=== PATIENT | female | born 1980 | race Caucasian/White ===

== ENCOUNTER 2019-04-24 15:04 | Inpatient (IN) | payer OTHER, SELFPAY ==
--- NOTE | ~2019-04-24 | XR_ITS ---
EXAMINATION: XR chest 2V DATE: 05/02/2019 07:00 INDICATION: Pneumonia TECHNIQUE: PA and lateral views of the chest were obtained. COMPARISON: Chest radiograph dated 05/01/2019 FINDINGS: Interval change in focal airspace opacities in the right middle lobe consistent with pneumonia. No ne w airspace opacities, pulmonary edema, pleural effusion or pneumothorax. The cardiomediastinal silhou ette is normal. Visualized bones and soft tissues are unremarkable. IMPRESSION: 1. Unchanged right middle lobe pneumonia. Reviewed, dictated and finalized at location A. AND WASHER
--- NOTE | ~2019-04-24 | CT_ITS ---
EXAMINATION: CTA chest PE protocol DATE: 04/28/2019 18:31 PETROLEUM LABORATORY TECHNICIAN INDICATION: Persistent pleuritic pain with cough TECHNIQUE: Computed tomographic angiography (CTA) of the chest was performed with 100 mL Omnipaque-35 0 intravenous contrast. The dose-length product was 165.01 mGy-cm. Maximum intensity projection 3D-re constructions of the aorta and other arteries were constructed by the technologist on a separate work station. COMPARISON: Chest dated 04/27/2019. FINDINGS: The study is technically adequate without evidence for pulmonary embolism. No evidence for aortic aneurysm. Heart size normal. Small right pleural effusion. There is right middle lobe airspace consolidation. There is a 5 mm right lower lobe nodule. There is lingular atelectasis. The upper abd omen is unremarkable. No thoracic lymphadenopathy. Soft tissues are unremarkable. IMPRESSION: 1. No evidence for pulmonary embolism. 2: Right middle lobe airspace consolidation which may represent a combination of pneumonia and/or ate lectasis. 3: Small right pleural effusion. 4: 5 mm right lower lobe nodule, likely benign. Follow-up low dose CT in 12 months recommended. Reviewed, dictated and finalized at location A. OLEUM LABORATORY TECHNICIAN IMPRESSION: 1. No evidence for pulmonary embolism. 2: Right middle lobe airspace consolidation which may represent a combination o f pneumonia and/or atelectasis. 3: Small right pleural effusion. 4: 5 mm right lower lobe nodule, likely benign. Follow-up low dose CT in 12 mo nths recommended.
--- NOTE | ~2019-04-24 | XR_ITS ---
XR chest 2V DATE: 04/24/2019 15:43 INDICATION: Right side chest pain, shortness of breath, cough for 4 days TECHNIQUE: PA and lateral views COMPARISON: 03/24/2019 PA and lateral views FINDINGS: There is middle lobe consolidation. The remaining lung parikh are clear. Normal heart size. No hilar or mediastinal mass lesion or lymphadenopathy is detected. No pulmonary vascular congestion or pleural effusion or pneumothorax. IMPRESSION: Middle lobe consolidation Reviewed, dictated and finalized at location A. R HOT WATER INSTALLER IMPRESSION: Middle lobe consolidation
--- NOTE | ~2019-04-24 | XR_ITS ---
XR chest 2V DATE: 04/27/2019 11:44 INDICATION: Worsening shortness of breath TECHNIQUE: PA and lateral views COMPARISON: 04/24/2019 2 view chest FINDINGS: Again noted is middle lobe consolidation, with evidence of some interval patchy right lower lobe basilar infiltrate since 04/24/2019. The remaining lung parikh are clear. No pleural effusion or pulmonary vascular congestion or pneumothorax. Normal heart size. IMPRESSION: Persistent middle lobe consolidation and interval right lower lobe basilar infiltrate sin ce 04/24/2019 Reviewed, dictated and finalized at location A. MAN IMPRESSION: Persistent middle lobe consolidation and interval right lower lobe basilar infiltrate since 04/24/2019
--- NOTE | ~2019-04-24 | XR_ITS ---
XR chest 2V DATE: 05/01/2019 08:36 INDICATION: Persistent pleuritic chest pain, cough. Pneumonia. TECHNIQUE: PA and lateral views COMPARISON: 04/28/2019 CT pulmonary scan 04/27/2019 2 view chest FINDINGS: Middle lobe infiltrate or atelectasis appears mildly improved as does the right lower lobe basilar infiltrate and/atelectasis since 04/27/2019. Normal heart size. No pleural effusion or pneumothorax. IMPRESSION: Improvement of right middle and lower lobe infiltrate and/or atelectasis since 04/27/2019 Reviewed, dictated and finalized at location A. FORCE DEVELOPMENT SPECIALIST IMPRESSION: Improvement of right middle and lower lobe infiltrate and/or atelec tasis since 04/27/2019
[2019-04-24 15:11] VITALS: RESP 30; TEMP 36.9
[2019-04-24 15:14] VITALS: PULSE 110
--- NOTE | 2019-04-24 15:22 | ED.CHESTPAIN ---
HPI - Chest Pain General Chief Complaint: Chest Pain Stated Complaint: cp Time Seen by Provider: 04/24/19 15:20 Source: patient and RN notes reviewed Mode of arrival: ambulatory Limitations: no limitations History of Present Illness HPI narrative: Pt is a 38 y/o female presenting to the ED c/o CP. Pt reports she started experiencing rt sided CP yesterday. Pt states she was diagnosed with Bronchitis at this facility 2 weeks ago, and notes she was prescribed an inhaler in which she took today to no effect on her CP. Pt also reports subjective fever and nausea, but denies vomiting. Pt notes she has been taking DayQuil for her Sx's. Pt denies any recent fall or injury. Pertinent past history: other (Bronchitis) Onset (ago): day(s) (1) Pain location: right chest Associated symptoms: nausea and fever (Subjective) Related Data Home Medications Medication Instructions Recorded Confirmed sertraline 100 mg PO DAILY 03/24/19 04/24/19 clonazepam 1 mg PO PRN 04/24/19 Allergies Allergy/AdvReac Type Severity Reaction Status Date / Time No Known Allergies Allergy Verified 03/24/19 13:49 Review of Systems Review of Systems: All systems reviewed & are unremarkable except as noted in HPI and below Constitutional: Constitutional: Reports fever(s) (Subjective) Cardiovascular: Cardiovascular: Reports chest pain (Rt sided) Gastrointestinal: Gastrointestinal: Reports nausea and Denies vomiting PMFSH Past Medical History Medical History (Updated 04/24/19 @ 22:15 by Amie Veliz MD) Anxiety Depression Irritable bowel syndrome With diarrhea Surgical History Surgical History (Updated 04/24/19 @ 21:52 by Brigid Fletcher NP) History of salpingectomy Family History Family History (Updated 04/24/19 @ 21:53 by Brigid Fletcher NP) Mother Diabetes mellitus Hypothyroidism Anxiety Depression Father Fibromyalgia Other Heart disease Pneumonia Social History Social History (Updated 04/24/19 @ 21:54 by Brigid Fletcher NP) Social History: She has 1 daughter. She does not have a durable power deputy county attorney. She lives on her own with her daughter. 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 She said she quit smoking and drinking when she got with her daughter. She was a social drinker and social smoker. She is a full code. Smoking status: Former smoker Alcohol intake: former Substance use: never Living arrangements: with family Additional living arrangements comments: With her daughter Occupation/Education: occupation Gender identity (if verbalized by the patient): Female Spiritual care concerns: No Agree to blood products: Yes Exam Const: General: alert and ill appearing Orientation/consciousness: oriented x3 Other: patient in moderate distress due to pain HENMT: Head: normocephalic and atraumatic Ears: hearing grossly normal bilaterally, external ears normal and TM's normal bilaterally General nose exam: external nose normal Face and sinus: normal facial exam Mouth: Yes oral mucosae normal and Yes lip normal Throat: posterior oropharynx normal and tonsils normal Eyes: Conjunctivae: conjunctivae normal Pupils: PERRL Chest: Chest palpation & inspection: tenderness rib (right anterior lower) Resp: Effort & Inspection: tachypneic and no use of accessory muscles Auscultation: clear to auscultation bilaterally, no wheezes and diminished lung sounds Cardio: Rate: tachycardic Rhythm: regular rhythm Heart sounds: no murmurs GI: Inspection: non-distended GI Palp: No abdominal tenderness Auscultation: normal bowel sounds Skin: General skin exam: normal color Rashes: no rashes Neuro: General: oriented x3, moves all extremities and no meningeal signs Extrem: General: normal to inspection Psych: Mental Status: mental status grossly normal Course Consultations Consultation #1: Discussed case with Hospitalist GENERAL MANAGER Brigid Campos
[2019-04-24] MEDS: KETOROLAC 30 MG/ML VIAL (*BKC) IV PUSH ×2 (15:39→21:40)
[2019-04-24] MEDS: ONDANSETRON INJ 4 MG/2 ML VIAL IV PUSH (15:40)
[2019-04-24] MEDS: SODIUM CHLORIDE 0.9% IV 1,000 ML 999 ML IV CONT (15:40)
--- NOTE | 2019-04-24 15:40 | ECG_ITS ---
Measurements Intervals [place] Rate: 107 P: 66 MN: 119 QRS: 73 QRSD: 89 T: 63 QT: 314 QTc: 419 Interpretive Statements SINUS TACHYCARDIA INCOMPLETE RIGHT BUNDLE BRANCH BLOCK BASELINE ARTIFACT- I, II, AVR, AVL, AVF, V1-V6 ABNORMAL ECG Electronically Signed On 04-24-2019 16:44:51 CRESTER by Jonathan Neil D.O.
[2019-04-24 15:42] LABS: Basophils Percent Auto 0.2 % (0.2-1.2); Eosinophils Percent Auto 0.2 % (0-4.4); Hematocrit 35.7 % (37.0-47.0); Hemoglobin 11.6 g/dL (12.0-15.0); Immature Granulocyte Absolute 0.09 K/mm3 (0.00-0.031); Immature Granulocyte Percent A 0.5 % (0-0.5); Lymphocytes Absolute Auto 1.21 K/mm3 (0.9-3.2); Lymphocytes Percent Auto 6.9 % (18.3-44.2); Mean Corpuscular HGB Conc 32.5 g/dl (32-36); Mean Corpuscular Volume 98.6 fl (80-100); Mean Platelet Volume 10.8 fl (7.4-10.4); Monocytes Percent Auto 5.4 % (2.6-8.5); Neutrophils Absolute Auto 15.2 K/mm3 (1.3-6.7); Neutrophils Percent Auto 86.8 % (45.5-73.1); Platelet Count Result 159 k/mm3 (150-375); Red Blood Count 3.62 M/mm3 (4.2-5.4); Red Cell Distribution Width 13.4 % (11.5-14.5); White Blood Count 17.5 K/mm3 (4.5-10.0)
[2019-04-24 15:53] LABS: Alanine Aminotransferase 36 U/L (4-35); Albumin Level 3.8 g/dL (3.5-5.1); Alkaline Phosphatase 89 U/L (38-126); Aspartate Amino Transferase 33 U/L (14-36); Bilirubin,Total 0.6 mg/dL (0.2-1.3); Blood Urea Nitrogen 13 mg/dL (7-17); Calcium 8.6 mg/dL (8.4-10.2); Carbon Dioxide 24 mmol/L (22-30); Chloride 104 mmol/L (98-107); D Dimer 0.27 ug/mL (<0.48); Estimated Glomerular Filt Rate > 60; Glucose 114 mg/dL (65-105); Lipase 30 U/L (23-300); Potassium 3.7 mmol/L (3.4-5.0); Sodium 139 mmol/L (137-145)
[2019-04-24 15:53] LABS: Add Urine Microscopic? YES; Appearance Urine Cloudy (Clear); Bacteria Urine Trace /hpf; Bilirubin Urine 1+ (Negative); Blood Urine Negative (Negative); Color Urine Amber (Yellow); Glucose Urine UA Negative (Negative); Ketones Urine Negative (Negative); Leukocyte Esterase Ur Trace LEU/UL (Negative); Mucus Urine Heavy /lpf; Nitrate Urine Negative (Negative); Protein Urine 2+ mg/dL (Negative); Squamous Epithelial Cell Urine Many /hpf (Few); WBC Urine 0-3 /hpf
[2019-04-24 15:59] LABS: Specific Grav Ur 1.033 (1.001-1.035)
[2019-04-24] MEDS: LACTATED RINGERS 1,000 ML 999 ML IV CONT (16:49)
[2019-04-24 17:07] LABS: Lactic Acid Reflex 0.7 mmol/L (0.7-2.1)
[2019-04-24 17:48] VITALS: BP 98/61; PULSE 97; RESP 20; TEMP 36.8; O2SAT 99
--- NOTE | 2019-04-24 18:26 | ADMGEN ---
This patient, Lana Valentin, was admitted to 3 Medical Room 340-01. Patient/family oriented to hospital policies and general routines including ID bracelet, bed and alarms, visiting hours, pain management, procedures, bathroom and other care routines, personal items, smoking policy, room service/diet, and visiting hours. Valuables list has been completed. Information on how to activate the Rapid Response Team has been discussed. Patient/Family are encouraged to report perceived risks to care and to ask questions if they do not understand what they are told or what they should do.
[2019-04-24 18:32] VITALS: BP 113/57; PULSE 88; RESP 18; TEMP 36.7; O2SAT 100; BMI 24.5
[2019-04-24] MEDS: LACTATED RINGERS 1,000 ML 125 ML IV CONT (18:42)
[2019-04-24] MEDS: PROMETHAZINE HCL 25 MG/ML AMPUL 12.5 MG IV PUSH (19:00)
[2019-04-24 21:40] VITALS: BP 104/56; PULSE 87; RESP 16; TEMP 37; O2SAT 99
--- NOTE | 2019-04-24 21:48 | PM.IMHP ---
H&P: HPI History of Present Illness Chief complaint: sepsis/pneumonia Narrative: Lana Valentin is a 38 year old female who was seen in this emergency room proximally 2 weeks ago. The patient stated that she was sick for about 3 weeks. She has had about 2 weeks ago she was treated for bronchitis with antibiotics and inhaler. The patient stated she continue to get worse. She did not have a fever but had chills. She also had some nausea but no vomiting. No shortness of breath. She does complain about some right middle back pain. She stated the pain is worse when she takes a deep breath. She said she has been coughing up some yellow phlegm. Patient was diagnosed with right middle lobe pneumonia per diagnostic x-ray today. She was started on azithromycin and Rocephin as she has failed outpatient therapy. She is not sure which antibiotic she had been on outpatient. Due to service is 04/24/2019. Review of Systems Review of Systems: All systems reviewed & are unremarkable except as noted in HPI and below Constitutional: Constitutional: Reports as per HPI, Reports body ache(s), Reports chills, Reports fatigue and Reports poor appetite Eyes: Eyes: Reports as per HPI and Reports no additional eye complaints ENT: Reports system reviewed and no additional complaints, except as documented and Reports hearing normal Cardiovascular: Cardiovascular: Reports no additional cardiovascular complaints Respiratory: Respiratory: Reports no additional respiratory complaints, Reports change in phlegm color, Reports chest congestion, Reports cough and Reports pain on inspiration Gastrointestinal: Gastrointestinal: Reports as per HPI, Reports dyspepsia and Reports other (Nausea) Musculoskeletal: Musculoskeletal: Reports no additional musculoskeletal complaints Integumentary/Breasts: Skin/Breast: Reports system reviewed and no additional complaints, except as docu and Reports as per HPI Neurologic: Reports system reviewed and no additional complaints, except as documented, Reports as per HPI and Reports Normal hearing present Psychiatric: Psychiatric: Reports no additional psychiatric complaints Comments: History of panic attacks and anxiety. Depression Endocrine: Endocrine: Reports no additional endocrine complaints Hematologic/Lymphatic: Hematologic/Lymphatic: Reports no additional hematologic/lymphatic complaints Allergic/Immunologic: Allergic/Immunologic: Reports no additional allergic/immunologic complaints PMF Past Medical History Medical History (Updated 04/24/19 @ 21:52 by Brigid Fletcher NP) Anxiety Depression Irritable bowel syndrome With diarrhea Surgical History Surgical History (Updated 04/24/19 @ 21:52 by Brigid Fletcher NP) History of salpingectomy Family History Family History (Updated 04/24/19 @ 21:53 by Brigid Fletcher NP) Mother Diabetes mellitus Hypothyroidism Anxiety Depression Father Fibromyalgia Other Heart disease Pneumonia Social History Social History (Updated 04/24/19 @ 21:54 by Brigid Fletcher NP) Social History: She has 1 daughter. She does not have a durable power senior attorney. She lives on her own with her daughter. 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 She said she quit smoking and drinking when she got with her daughter. She was a social drinker and social smoker. She is a full code. Smoking status: Former smoker Alcohol intake: former Substance use: never Living arrangements: with family Additional living arrangements comments: With her daughter Occupation/Education: occupation Gender identity (if verbalized by the patient): Female Spiritual care concerns: No Agree to blood products: Yes Meds Home Medications and Allergies Home Medications Medication Instructions Recorded Confirmed Type albuterol sulfate [ProAir HFA] 2 puff INHALATION QID PRN #6.7 gm 03/24/19 04/24/19 Rx sertralin
[2019-04-25] VITALS (12 sets, daily range): BP systolic 100–111; BP diastolic 50–58; PULSE 74–91; RESP 14–20; TEMP 36.2–36.6; O2SAT 99–100
[2019-04-25] MEDS: SODIUM CHLORIDE 0.9% IV 1,000 ML 100 ML IV CONT ×2 (02:19→13:39)
[2019-04-25] MEDS: ALBUTEROL SULFATE NEB 2.5 MG/0.5 ML INH INHALATION ×4 (03:22→22:10)
[2019-04-25] MEDS: IPRATROPIUM BR 0.02% INH SOLN 0.5 MG/2.5 ML VIAL INHALATION ×4 (03:22→22:10)
[2019-04-25] MEDS: CLONAZEPAM 0.5 MG TAB 1 MG PO ×2 (04:14→23:10)
[2019-04-25 05:42] LABS: Basophils Percent Auto 0.2 % (0.2-1.2); Eosinophils Absolute Auto 0.2 K/mm3 (0-0.3); Hematocrit 29.6 % (37.0-47.0); Hemoglobin 9.5 g/dL (12.0-15.0); Immature Granulocyte Absolute 0.13 K/mm3 (0.00-0.031); Immature Granulocyte Percent A 0.8 % (0-0.5); Immature Platelet Fraction Pct 5.1 % (0.9-11.2); Lymphocytes Absolute Auto 1.96 K/mm3 (0.9-3.2); Lymphocytes Percent Auto 12.8 % (18.3-44.2); Mean Corpuscular HGB Conc 32.1 g/dl (32-36); Mean Corpuscular Hemoglobin 32.8 pg (26-34); Mean Corpuscular Volume 102.1 fl (80-100); Mean Platelet Volume 11.8 fl (7.4-10.4); Monocytes Absolute Auto 1.1 K/mm3 (0.1-0.6); Monocytes Percent Auto 7.1 % (2.6-8.5); Neutrophils Absolute Auto 11.9 K/mm3 (1.3-6.7); Neutrophils Percent Auto 78.1 % (45.5-73.1); Platelet Count Result 135 k/mm3 (150-375); Red Cell Distribution Width 13.7 % (11.5-14.5); White Blood Count 15.3 K/mm3 (4.5-10.0)
[2019-04-25 05:53] LABS: Alanine Aminotransferase 32 U/L (4-35); Albumin Level 2.8 g/dL (3.5-5.1); Alkaline Phosphatase 89 U/L (38-126); Aspartate Amino Transferase 29 U/L (14-36); Bilirubin,Total 0.4 mg/dL (0.2-1.3); Blood Urea Nitrogen 10 mg/dL (7-17); Calcium 7.6 mg/dL (8.4-10.2); Carbon Dioxide 25 mmol/L (22-30); Chloride 106 mmol/L (98-107); Estimated CRCL calculation 106 ml/min; Estimated Glomerular Filt Rate > 60; Glucose 126 mg/dL (65-105); Potassium 3.4 mmol/L (3.4-5.0); Sodium 137 mmol/L (137-145)
[2019-04-25] MEDS: SERTRALINE HCL 50 MG TABLET 100 MG PO (08:24)
[2019-04-25] MEDS: ENOXAPARIN 40 MG/0.4 ML SYRINGE SUB-Q (08:24)
--- NOTE | 2019-04-25 13:51 | PM.IMPN ---
Progress Note: A&P Assessment and Plan (1) Right middle lobe pneumonia: Qualifiers: Pneumonia type: due to unspecified organism Qualified Code(s): J18.9 - Pneumonia, unspecified organism Code(s): J18.9 - Pneumonia, unspecified organism Status: Acute Assessment and Plan: -----the patient has improved since admission with antibiotics and breathing treatments. She still has significant cough and pain when coughing. Will continue current treatment. She was given a zpack outpatient which improved her condition for a bit but then it worsened. Now she is getting ceftiraxone along with the azithromycin. No concern for MRSA in her hx. 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 She has no concerns for HIV and does not do IV drugs. Blood cultures negative so far. will continue Vicodin for pleuretic pain (2) Anxiety: Code(s): F41.9 - Anxiety disorder, unspecified Status: Chronic Assessment and Plan: -----Continue with her Zoloft and her clonazepam. (3) Depression: Code(s): F32.9 - Major depressive disorder, single episode, unspecified Status: Chronic Assessment and Plan: ----Continue with Zoloft . (4) Irritable bowel syndrome: Code(s): K58.9 - Irritable bowel syndrome without diarrhea Status: Chronic Assessment and Plan: -----No problems at this time. Time Spent With Patient Time with patient: 25 - 35 minutes Subjective Date/time seen: 04/25/19 13:51 Interval history: Pt is a 38-year-old female here for pneumonia. Patient states that her shortness of breath has slightly gotten better. However, the right sided pain continues to be significant. She says the Vicodin helps for about 4 hours and then wears off pretty quickly. she is not able to tolerate much of a diet and becomes nauseated. She has overall malasie and is not sleeping well because of her cough and pain. She has not had a BM since being here. She denies CP at this time. Review of Systems Review of Systems: All systems reviewed & are unremarkable except as noted in HPI and below Exam Narrative: Exam Narrative: General: Well developed well nourished patient resting in bed in NAD HEENT: normocephalic Neck: supple Neuro: Alert and oriented x 4 CV:RRR. pain to palpation to the lateral intercostal muscles with slight palpation. Resp:rhonchi and significant cough with inspiration. Abd: Soft, non distended. No pain to palpation. Positive bowel sounds Extremities: No swelling, erythema, or pain to palpation. Objective Data Vital Signs Vital Signs: Vital Signs - 24 hr 04/24/19 15:11 04/24/19 15:14 04/24/19 17:48 Temperature 98.4 F 98.2 F Pulse Rate 110 H 97 Respiratory Rate 30 H 20 Blood Pressure 98/61 L Pulse Oximetry 99 04/24/19 18:32 04/24/19 21:40 04/25/19 03:22 Temperature 98.1 F 98.6 F Pulse Rate 88 87 88 Respiratory Rate 18 16 20 Blood Pressure 113/57 L 104/56 L Pulse Oximetry 100 99 04/25/19 03:29 04/25/19 06:00 04/25/19 08:04 Temperature 97.8 F Pulse Rate 86 80 83 Respiratory Rate 20 14 16 Blood Pressure 100/54 L Pulse Oximetry 99 04/25/19 08:09 Temperature Pulse Rate 74 Respiratory Rate 16 Blood Pressure Pulse Oximetry Intake/Output Intake/Output: Intake & Output 04/22/19 04/23/19 04/24/19 04/25/19 23:59 23:59 23:59 23:59 Intake Total 2250 2710 Output Total 900 Balance 2250 1810 Meds/Results Medications: Active Medications Generic Name Dose Route Start Last Admin Trade Name Freq PRN Reason Stop Dose Admin Hydrocodone Bitart/Acetaminophen 1 tab 04/24/19 17:48 04/25/19 10:38 [place] 5-325 Mg PO 1 tab Q4H PRN Administration Pain Rated 4-6 Albuterol 2.5 mg 04/25/19 02:00 04/25/19 08:01 Albuterol Sulf Neb 2.5mg/0.5ml INHALATION 2.5 mg Q6HRT RAKESH Administration Clonazepam 1 mg 04/24/19 21:44 04/25/19 04:14 Klonopin Tablet PO 1
[2019-04-25] MEDS: IBUPROFEN 600 MG TABLET PO ×3 (14:45→23:11)
[2019-04-25] MEDS: PROMETHAZINE HCL 25 MG/ML AMPUL 12.5 MG IV PUSH (20:15)
[2019-04-25 22:54] LABS: Add Urine Microscopic? NO; Appearance Urine Clear (Clear); Bilirubin Urine Negative (Negative); Blood Urine Negative (Negative); Color Urine Straw (Yellow); Glucose Urine UA Negative (Negative); Ketones Urine Negative (Negative); Leukocyte Esterase Ur Negative LEU/UL (NEGATIVE); Nitrate Urine Negative (Negative); Protein Urine Negative (Negative); Specific Grav Ur 1.005 (1.001-1.035); Urobilinogen Urine Negative mg/dL (<2.0)
[2019-04-26] VITALS (11 sets, daily range): BP systolic 110–123; BP diastolic 53–65; PULSE 72–106; RESP 16–18; TEMP 36.3–36.6; O2SAT 99–100
[2019-04-26] MEDS: SODIUM CHLORIDE 0.9% IV 1,000 ML 100 ML IV CONT ×2 (01:29→11:40)
[2019-04-26] MEDS: IPRATROPIUM BR 0.02% INH SOLN 0.5 MG/2.5 ML VIAL INHALATION ×4 (04:08→21:48)
[2019-04-26] MEDS: ALBUTEROL SULFATE NEB 2.5 MG/0.5 ML INH INHALATION ×4 (04:08→21:47)
[2019-04-26 05:57] LABS: Hematocrit 29.6 % (37.0-47.0); Hemoglobin 9.3 g/dL (12.0-15.0); Mean Corpuscular HGB Conc 31.4 g/dl (32-36); Mean Corpuscular Volume 101.7 fl (80-100); Mean Platelet Volume 11.7 fl (7.4-10.4); Platelet Count Result 177 k/mm3 (150-375); Red Blood Count 2.91 M/mm3 (4.2-5.4); Red Cell Distribution Width 13.8 % (11.5-14.5); White Blood Count 7.6 K/mm3 (4.5-10.0)
[2019-04-26 06:10] LABS: Blood Urea Nitrogen 9 mg/dL (7-17); Calcium 7.6 mg/dL (8.4-10.2); Carbon Dioxide 23 mmol/L (22-30); Chloride 109 mmol/L (98-107); Estimated CRCL calculation 106 ml/min; Estimated Glomerular Filt Rate > 60; Glucose 105 mg/dL (65-105); Potassium 3.4 mmol/L (3.4-5.0); Sodium 138 mmol/L (137-145)
[2019-04-26] MEDS: IBUPROFEN 600 MG TABLET PO ×2 (06:13→11:41)
[2019-04-26 07:16] LABS: Folic Acid 7.6 ng/mL (2.76->20)
[2019-04-26] MEDS: SERTRALINE HCL 50 MG TABLET 100 MG PO (08:11)
[2019-04-26] MEDS: POTASSIUM CHLORIDE 20 MEQ TABLET 40 MEQ PO (08:11)
[2019-04-26] MEDS: ENOXAPARIN 40 MG/0.4 ML SYRINGE SUB-Q (08:11)
--- NOTE | 2019-04-26 13:05 | PM.IMPN ---
Progress Note: A&P Assessment and Plan (1) Right middle lobe pneumonia: Qualifiers: Pneumonia type: due to unspecified organism Qualified Code(s): J18.9 - Pneumonia, unspecified organism Code(s): J18.9 - Pneumonia, unspecified organism Status: Acute Assessment and Plan: -----the patient has improved since admission but is not tolerating the IV azithromcyin. Will switch her to doxycycline with her ceftriaxone. She has significant cough and wheeze on exam so I will give her a one time dose of steroids to see if that helps. She has anxiety and scheduled steroids may not be the best for her. Will start cough medications PRN as well as insentive spirometer. We will stop the fluids since she is able to drink water and keep it down. PPI has been started since on Nsaid and now getting a steroids with abdominal pain. No concern for MRSA in her hx. 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 She has no concerns for HIV and does not do IV drugs. Blood cultures negative so far. will continue Vicodin for pleuretic pain (2) Anxiety: Code(s): F41.9 - Anxiety disorder, unspecified Status: Chronic Assessment and Plan: -----Continue with her Zoloft and her clonazepam. (3) Depression: Code(s): F32.9 - Major depressive disorder, single episode, unspecified Status: Chronic Assessment and Plan: ----Continue with Zoloft . (4) Irritable bowel syndrome: Code(s): K58.9 - Irritable bowel syndrome without diarrhea Status: Chronic Assessment and Plan: -----One episode of diarrhea and vomiting after abx. Bowels seem stable at this time. continue to monitor. Subjective Date/time seen: 04/26/19 13:05 Interval history: Pt is a 38-year-old female here for pneumonia. Patient was seen today and states she feels a little better when compared to yesterday. She told me that when she got the IV azithromycin last night she got very hot, upset to her stomach, and had diarrhea and vomiting. This has not affected her like this before but it started right when the abx started. She has been unable to eat much food today but is holding down liquids. She is going to try to increase her diet today. She is still having pain in the RUQ but it has improved when she takes the ibuprofen and the norco together. She denies SOB, CP, fevers, or chills. . Exam Narrative: Exam Narrative: General: Well developed well nourished patient resting in bed in NAD HEENT: normocephalic Neck: supple Neuro: Alert and oriented x 4 CV:RRR. pain to palpation to the right lateral intercostal muscles with slight palpation. Resp:rhonchi and significant cough with inspiration. Abd: Soft, non distended. No pain to palpation. Positive bowel sounds Extremities: No swelling, erythema, or pain to palpation. Objective Data Vital Signs Vital Signs: Vital Signs - 24 hr 04/25/19 14:00 04/25/19 14:09 04/25/19 14:17 Temperature 97.8 F Pulse Rate 90 88 84 Respiratory Rate 16 16 16 Blood Pressure 110/50 L Pulse Oximetry 100 04/25/19 22:00 04/25/19 22:10 04/25/19 22:18 Temperature 97.1 F L Pulse Rate 85 91 86 Respiratory Rate 14 16 16 Blood Pressure 111/58 L Pulse Oximetry 100 04/25/19 23:00 04/26/19 04:09 04/26/19 04:15 Temperature Pulse Rate 86 83 85 Respiratory Rate 16 16 18 Blood Pressure Pulse Oximetry 100 04/26/19 06:00 04/26/19 07:25 04/26/19 07:34 Temperature 97.4 F L Pulse Rate 79 86 85 Respiratory Rate 16 16 18 Blood Pressure 116/53 L Pulse Oximetry 100 Intake/Output Intake/Output: Intake & Output 04/23/19 04/24/19 04/25/19 04/26/19 23:59 23:59 23:59 23:59 Intake Total 2250 4990 2004 Output Total 1750 1000 Balance 2250 3240 1004 Meds/Results Medications: Active Medications Generic Name Dose Route Start Last Admin Trade Name Freq PRN Reason Stop Dose Admin Hydrocodone Bitart/Acetaminophen 1
[2019-04-26] MEDS: PANTOPRAZOLE SOD SESQUIHYDRATE 20 MG TAB PO (13:48)
[2019-04-26] MEDS: methylPREDNISolone SOD SUCC 40 MG VIAL 20 MG IV PUSH (13:48)
[2019-04-26] MEDS: BENZONATATE 100 MG CAPSULE 200 MG PO ×2 (13:48→16:34)
[2019-04-26] MEDS: DOXYCYCLINE HYCLATE 100 MG TABLET PO ×2 (13:48→20:17)
[2019-04-27] VITALS (11 sets, daily range): BP systolic 123–135; BP diastolic 56–81; PULSE 85–107; RESP 14–20; TEMP 36.2–36.5; O2SAT 96–100
[2019-04-27] MEDS: CLONAZEPAM 0.5 MG TAB 1 MG PO ×2 (02:06→14:46)
[2019-04-27] MEDS: IPRATROPIUM BR 0.02% INH SOLN 0.5 MG/2.5 ML VIAL INHALATION ×4 (03:04→20:21)
[2019-04-27] MEDS: ALBUTEROL SULFATE NEB 2.5 MG/0.5 ML INH INHALATION ×4 (03:04→20:21)
[2019-04-27 06:10] LABS: Hematocrit 30.4 % (37.0-47.0); Hemoglobin 9.9 g/dL (12.0-15.0)
[2019-04-27 06:22] LABS: Blood Urea Nitrogen 8 mg/dL (7-17); Calcium 8.8 mg/dL (8.4-10.2); Carbon Dioxide 24 mmol/L (22-30); Chloride 108 mmol/L (98-107); Estimated CRCL calculation 106 ml/min; Estimated Glomerular Filt Rate > 60; Glucose 115 mg/dL (65-105); Potassium 3.9 mmol/L (3.4-5.0); Sodium 138 mmol/L (137-145)
[2019-04-27 06:29] LABS: Transferrin 198 mg/dL (206-381)
[2019-04-27 06:50] LABS: Iron 78 ug/dL (37-170)
[2019-04-27 06:59] LABS: Percent Iron Saturation 28 % (20-50)
[2019-04-27] MEDS: BENZONATATE 100 MG CAPSULE 200 MG PO ×3 (08:01→16:50)
[2019-04-27] MEDS: DOXYCYCLINE HYCLATE 100 MG TABLET PO (08:01)
[2019-04-27] MEDS: ENOXAPARIN 40 MG/0.4 ML SYRINGE SUB-Q (08:02)
[2019-04-27] MEDS: PANTOPRAZOLE SOD SESQUIHYDRATE 20 MG TAB PO (08:03)
[2019-04-27] MEDS: SERTRALINE HCL 50 MG TABLET 100 MG PO (09:59)
--- NOTE | 2019-04-27 11:38 | PM.IMPN ---
Progress Note: A&P Assessment and Plan (1) Right middle lobe pneumonia: Qualifiers: Pneumonia type: due to unspecified organism Qualified Code(s): J18.9 - Pneumonia, unspecified organism Code(s): J18.9 - Pneumonia, unspecified organism Status: Acute Assessment and Plan: -----the patient is feeling worse today. She had a lot of wheezing so I will start steroids at this time. Continue ceftriaxone and doxycycline at this time. Repeat chest x-ray. May consider broadening the antibiotics if the chest x-ray looks worse and the patient continues to decline. I may consult pulmonology tomorrow if she has not made improvement. She still has significant pleuritic pain and I have stopped her ibuprofen and will try indomethacin. Continue Tessalon Perles and breathing treatments. I believe the steroids will help open up her lungs and hopefully she will start to feel better. 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 She has no concerns for HIV and does not do IV drugs. Blood cultures negative so far. will continue Vicodin for pleuretic pain (2) Anxiety: Code(s): F41.9 - Anxiety disorder, unspecified Status: Chronic Assessment and Plan: -----Continue with her Zoloft and her clonazepam. (3) Depression: Code(s): F32.9 - Major depressive disorder, single episode, unspecified Status: Chronic Assessment and Plan: ----Continue with Zoloft . (4) Irritable bowel syndrome: Code(s): K58.9 - Irritable bowel syndrome without diarrhea Status: Chronic Assessment and Plan: -----One episode of diarrhea and vomiting after abx. Bowels seem stable at this time. continue to monitor. Subjective Date/time seen: 04/27/19 11:38 Interval history: Pt is a 38-year-old female here for pneumonia. Patient was seen today and thinks she is doing worse. She says she has intermitten SOB and her pluretic pain is now on the right and the left. She said her cough is about the same. The one dose of steroids she got yesterday she didn't think made much of a difference. She is able to eat more today and is not having diarrhea. Exam Narrative: Exam Narrative: General: Well developed well nourished patient resting in bed in NAD HEENT: normocephalic Neck: supple Neuro: Alert and oriented x 4 CV:RRR. pain to palpation to the right and left lateral intercostal muscles with slight palpation. Resp:rhonchi and significant cough with inspiration--unchanged. Abd: Soft, non distended. No pain to palpation. Positive bowel sounds Extremities: No swelling, erythema, or pain to palpation. Objective Data Vital Signs Vital Signs: Vital Signs - 24 hr 04/26/19 14:00 04/26/19 14:15 04/26/19 14:21 Temperature 97.6 F Pulse Rate 106 H 81 88 Respiratory Rate 16 18 18 Blood Pressure 110/59 L Pulse Oximetry 100 04/26/19 20:19 04/26/19 21:48 04/26/19 21:58 Temperature 97.8 F Pulse Rate 73 72 77 Respiratory Rate 16 18 18 Blood Pressure 123/65 Pulse Oximetry 99 04/27/19 03:04 04/27/19 05:09 04/27/19 08:17 Temperature 97.5 F L Pulse Rate 85 95 107 H Respiratory Rate 18 14 18 Blood Pressure 135/81 Pulse Oximetry 97 04/27/19 08:31 Temperature Pulse Rate 98 Respiratory Rate 18 Blood Pressure Pulse Oximetry Intake/Output Intake/Output: Intake & Output 04/24/19 04/25/19 04/26/19 04/27/19 23:59 23:59 23:59 23:59 Intake Total 2250 4990 3857 890 Output Total 1750 2200 900 Balance 2250 3240 1657 -10 Meds/Results Medications: Active Medications Generic Name Dose Route Start Last Admin Trade Name Freq PRN Reason Stop Dose Admin Hydrocodone Bitart/Acetaminophen 1 tab 04/24/19 17:48 04/27/19 08:00 [place] 5-325 Mg PO 1 tab Q4H PRN Administration Pain Rated 4-6 Albuterol 2.5 mg 04/25/19 02:00 04/27/19 08:17 Albuterol Sulf Neb 2.5mg/0.5ml INHALATION 2.5 mg Q6HRT [facility] Administratio
[2019-04-27] MEDS: methylPREDNISolone SOD SUCC 40 MG VIAL IV PUSH ×2 (12:35→17:39)
[2019-04-27] MEDS: INDOMETHACIN 25 MG CAPSULE PO ×2 (12:35→16:49)
[2019-04-27] MEDS: SACCHAROMYCES BOULARDII 250 MG CAPSULE PO ×2 (13:38→16:49)
[2019-04-28] VITALS (12 sets, daily range): BP systolic 124–138; BP diastolic 64–84; PULSE 82–98; RESP 16–20; TEMP 36.2–36.9; O2SAT 97–100
[2019-04-28] MEDS: methylPREDNISolone SOD SUCC 40 MG VIAL IV PUSH ×4 (00:26→17:13)
[2019-04-28] MEDS: CLONAZEPAM 0.5 MG TAB 1 MG PO (00:26)
[2019-04-28] MEDS: ALBUTEROL SULFATE NEB 2.5 MG/0.5 ML INH INHALATION ×4 (03:11→19:25)
[2019-04-28] MEDS: IPRATROPIUM BR 0.02% INH SOLN 0.5 MG/2.5 ML VIAL INHALATION ×4 (03:11→19:25)
[2019-04-28 05:57] LABS: Estimated CRCL calculation 106 ml/min; Estimated Glomerular Filt Rate > 60
[2019-04-28] MEDS: INDOMETHACIN 25 MG CAPSULE PO ×3 (07:50→18:27)
[2019-04-28] MEDS: ENOXAPARIN 40 MG/0.4 ML SYRINGE SUB-Q (08:28)
[2019-04-28] MEDS: SACCHAROMYCES BOULARDII 250 MG CAPSULE PO ×3 (08:29→18:27)
[2019-04-28] MEDS: SERTRALINE HCL 50 MG TABLET 100 MG PO (08:29)
[2019-04-28] MEDS: BENZONATATE 100 MG CAPSULE 200 MG PO ×3 (08:29→18:27)
[2019-04-28] MEDS: PANTOPRAZOLE SOD SESQUIHYDRATE 20 MG TAB PO (08:29)
--- NOTE | 2019-04-28 12:02 | PM.IMPN ---
Progress Note: A&P Assessment and Plan (1) Right middle lobe pneumonia: Qualifiers: Pneumonia type: due to unspecified organism Qualified Code(s): J18.9 - Pneumonia, unspecified organism Code(s): J18.9 - Pneumonia, unspecified organism Status: Acute Assessment and Plan: -----the patient is feeling worse today. I will order a CTA and consult pulmonology. I changed her abx yesterday to van and zosyn because her CXR appared worse and she was having worse symtpoms. She had wheezing and inability to take deep breaths yesterday so I did start steroids which does not appear to be helping her at this time. Will add a muscle relaxer for her pain because nothing else seems to be working. She has been using a heating pad. I have also ordered urine antigens at this time. I appreciate additional recommendations from pulmonology. 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 She has no concerns for HIV and does not do IV drugs. Blood cultures negative so far. (2) Anxiety: Code(s): F41.9 - Anxiety disorder, unspecified Status: Chronic Assessment and Plan: -----Continue with her Zoloft and her clonazepam. (3) Depression: Code(s): F32.9 - Major depressive disorder, single episode, unspecified Status: Chronic Assessment and Plan: ----Continue with Zoloft . (4) Irritable bowel syndrome: Code(s): K58.9 - Irritable bowel syndrome without diarrhea Status: Chronic Assessment and Plan: -----One episode of diarrhea and vomiting after abx. Bowels seem stable at this time. continue to monitor. Subjective Date/time seen: 04/28/19 12:02 Interval history: Pt is a 38-year-old female here for pneumonia. Patient was seen today and thinks she is doing worse again today. She was in tears because of this. She says that steroids nor the indomethacin has been helping her pain. She cannot sleep and she says she feels like she can't get enough air in especially when she lays down. She is still constantly coughing. Her pleuretic pain is on both sides of her chest now. No diarrhea today. Exam Narrative: Exam Narrative: General: Well developed well nourished patient resting in bed in NAD HEENT: normocephalic Neck: supple Neuro: Alert and oriented x 4 CV:RRR. pain to palpation to the right and left lateral intercostal muscles with slight palpation. Resp:rhonchi and significant cough with inspiration--unchanged. constant cough on exam. Abd: Soft, non distended. No pain to palpation. Positive bowel sounds Extremities: No swelling, erythema, or pain to palpation. Objective Data Vital Signs Vital Signs: Vital Signs - 24 hr 04/27/19 14:00 04/27/19 14:57 04/27/19 15:10 Temperature 97.1 F L Pulse Rate 85 100 103 H Respiratory Rate 18 20 20 Blood Pressure 133/78 Pulse Oximetry 100 04/27/19 20:22 04/27/19 20:29 04/27/19 22:00 Temperature 97.7 F Pulse Rate 92 101 H 102 H Respiratory Rate 20 20 16 Blood Pressure 123/56 L Pulse Oximetry 100 04/28/19 03:11 04/28/19 03:20 04/28/19 06:00 Temperature 98.4 F Pulse Rate 88 98 91 Respiratory Rate 18 20 16 Blood Pressure 134/84 Pulse Oximetry 99 04/28/19 08:35 04/28/19 08:40 04/28/19 08:47 Temperature Pulse Rate 92 86 91 Respiratory Rate 16 16 18 Blood Pressure Pulse Oximetry 99 Intake/Output Intake/Output: Intake & Output 04/25/19 04/26/19 04/27/19 04/28/19 23:59 23:59 23:59 23:59 Intake Total 4990 3857 2300 1240 Output Total 1750 2200 2000 1600 Balance 3240 1657 300 -360 Meds/Results Medications: Active Medications Generic Name Dose Route Start Last Admin Trade Name Freq PRN Reason Stop Dose Admin Hydrocodone Bitart/Acetaminophen 1 tab 04/24/19 17:48 04/28/19 11:40 [place] 5-325 Mg PO 1 tab Q4H PRN Administration Pain Rated 4-6 Albuterol 2.5 mg 04/25/19 02:00 04/28/19 08:39 Albuterol Sulf Neb 2.5mg/0.5ml
--- NOTE | 2019-04-28 15:53 | PM.CNPUL ---
Assessment and Plan Assessment and plan (1) Right middle lobe pneumonia: Qualifiers: Pneumonia type: due to unspecified organism Qualified Code(s): J18.9 - Pneumonia, unspecified organism Code(s): J18.9 - Pneumonia, unspecified organism Status: Acute Assessment and Plan: Agree with antibiotic changes. Continue on IV Solu-Medrol and nebulizer treatment. Waiting results for streptococcal pneumoniae urine antigen and Legionella urine antigen. Waiting for the results from the CT scan with PE protocol. Will keep followup. (2) Bronchospasm with bronchitis, acute: Code(s): J20.9 - Acute bronchitis, unspecified Status: Acute Assessment and Plan: Continue nebulizer treatment and IV Solu-Medrol. History of Present Illness History of Present Illness Consult date: 04/28/19 Reason for consult: dyspnea, cough, chest pain and pneumonia Chief complaint: sepsis/pneumonia Narrative: I was consulted on this 38-year-old lady who was admitted to the hospital on the 25 of April with increasing cough, chest pain, shortness of breath and wheezing. She also complained of shivering prior to admission. A chest x-ray was performed which showed right middle lobe infiltrate and the patient was started on IV Rocephin and azithromycin. She was also started on albuterol nebulizer treatment and Solu-Medrol but she continued to have the same symptoms and she got worse this morning so she was switched to vancomycin and Zosyn. The patient is scheduled for CT scan with PE protocol to be performed this evening. She was seen in the Emergency Room couple weeks ago and diagnosed with bronchitis, I reviewed her chest x-ray at that time which was unremarkable and her recent chest x-rays which shows right middle lobe pneumonia. The patient quit smoking 4 years ago. 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 Review of Systems Constitutional: Constitutional: Reports as per HPI Eyes: Eyes: Reports no additional eye complaints ENT: Reports nasal congestion and Reports nasal discharge Cardiovascular: Cardiovascular: Reports no additional cardiovascular complaints Respiratory: Respiratory: Reports as per HPI Gastrointestinal: Gastrointestinal: Reports heartburn and Reports diarrhea Genitourinary: Genitourinary: Reports no additional female genitourinary complaints Musculoskeletal: Musculoskeletal: Reports no additional musculoskeletal complaints Psychiatric: Psychiatric: Reports anxiety PMFSH Past Medical History Medical History (Updated 04/28/19 @ 16:01 by Jaquelin Chance MD) Anxiety Depression Irritable bowel syndrome With diarrhea Surgical History Surgical History (Updated 04/24/19 @ 21:52 by Brigid Fletcher NP) History of salpingectomy Family History Family History (Updated 04/24/19 @ 21:53 by Brigid Fletcher NP) Mother Diabetes mellitus Hypothyroidism Anxiety Depression Father Fibromyalgia Other Heart disease Pneumonia Social History Social History (Updated 04/24/19 @ 21:54 by Brigid Fletcher NP) Social History: She has 1 daughter. 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 She lives on her own with her daughter. 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 She said she quit smoking and drinking when she got with her daughter. She was a social drinker and social smoker. She is a full code. Smoking status: Former smoker Alcohol intake: former Substance use: never Living arrangements: with family Additional living arrangements comments: With her daughter Occupation/Education: occupation Gender identity (if verbalized by the patient): Female Spiritual care concerns: No Agree to blood products: Yes Meds Home Medications and Allergies Home Medications Medication Instructions Recorded Confirmed Type albuterol sulfate
[2019-04-28] MEDS: CYCLOBENZAPRINE HCL 10 MG TABLET PO (20:13)
[2019-04-29] VITALS (13 sets, daily range): BP systolic 138–140; BP diastolic 78–84; PULSE 68–98; RESP 16–18; TEMP 36.4–36.8; O2SAT 95–99
[2019-04-29] MEDS: methylPREDNISolone SOD SUCC 40 MG VIAL IV PUSH ×5 (00:35→23:38)
[2019-04-29] MEDS: IPRATROPIUM BR 0.02% INH SOLN 0.5 MG/2.5 ML VIAL INHALATION ×4 (01:00→19:04)
[2019-04-29] MEDS: ALBUTEROL SULFATE NEB 2.5 MG/0.5 ML INH INHALATION ×4 (01:00→19:04)
[2019-04-29 06:13] LABS: Basophils Absolute Auto 0.1 K/mm3 (0.0-0.1); Basophils Percent Auto 0.2 % (0.2-1.2); Hematocrit 35.2 % (37.0-47.0); Hemoglobin 11.3 g/dL (12.0-15.0); Immature Granulocyte Absolute 0.35 K/mm3 (0.00-0.031); Immature Granulocyte Percent A 1.5 % (0-0.5); Mean Corpuscular HGB Conc 32.1 g/dl (32-36); Mean Corpuscular Hemoglobin 31.8 pg (26-34); Mean Corpuscular Volume 99.2 fl (80-100); Mean Platelet Volume 11.7 fl (7.4-10.4); Monocytes Absolute Auto 0.9 K/mm3 (0.1-0.6); Monocytes Percent Auto 3.8 % (2.6-8.5); Neutrophils Absolute Auto 21.5 K/mm3 (1.3-6.7); Neutrophils Percent Auto 89.5 % (45.5-73.1); Platelet Count Result 268 k/mm3 (150-375); Red Blood Count 3.55 M/mm3 (4.2-5.4); Red Cell Distribution Width 13.6 % (11.5-14.5)
[2019-04-29 06:30] LABS: Blood Urea Nitrogen 16 mg/dL (7-17); Calcium 9.1 mg/dL (8.4-10.2); Carbon Dioxide 26 mmol/L (22-30); Chloride 102 mmol/L (98-107); Estimated CRCL calculation 106 ml/min; Estimated Glomerular Filt Rate > 60; Glucose 112 mg/dL (65-105); Potassium 4.1 mmol/L (3.4-5.0); Sodium 137 mmol/L (137-145)
[2019-04-29] MEDS: INDOMETHACIN 25 MG CAPSULE PO ×3 (08:01→17:11)
[2019-04-29] MEDS: BENZONATATE 100 MG CAPSULE 200 MG PO ×3 (08:01→17:11)
[2019-04-29] MEDS: ENOXAPARIN 40 MG/0.4 ML SYRINGE SUB-Q (08:01)
[2019-04-29] MEDS: SERTRALINE HCL 50 MG TABLET 100 MG PO (08:02)
[2019-04-29] MEDS: SACCHAROMYCES BOULARDII 250 MG CAPSULE PO ×3 (08:02→17:11)
[2019-04-29] MEDS: PANTOPRAZOLE SOD SESQUIHYDRATE 20 MG TAB PO (08:02)
--- NOTE | 2019-04-29 09:22 | PCDIET ---
Weekly nutritional screen. Patient is tolerating current diet with adequate intake. No weight loss reported. No nutritional needs at this time.
--- NOTE | 2019-04-29 10:16 | PM.PNPUL ---
Progress Note: A&P Assessment and Plan (1) Right middle lobe pneumonia: Qualifiers: Pneumonia type: due to unspecified organism Qualified Code(s): J18.9 - Pneumonia, unspecified organism Code(s): J18.9 - Pneumonia, unspecified organism Status: Acute Assessment and Plan: The patient is clinically improving although her white cell count is elevated today. Her antibiotic regimen was changed last evening. I recommend to evaluate her response to antibiotics in 48-72 hours both clinically and with chest x-ray on Thursday morning. If she gets worse or not responding consider Bronchoscopy. Time Spent With Patient Time with patient: Greater than 35 minutes Subjective Date/time seen: 04/29/19 10:16 feels better today with less cough and shortness of breath. She continued to wheeze but not as bad. Reviewed her chest CT scan last evening which shows right middle lobe pneumonia and small right pleural effusion but negative for PE. Exam Const: General: comfortable and no acute distress HENMT: Face and sinus: normal facial exam Eyes: General: appearance normal, both eyes and all related structures Neck: Neck: full ROM and no lymphadenopathy Chest: Chest palpation & inspection: normal inspection of the chest Resp: Auscultation: rhonchi throughout Cardio: Rate: regular rate Rhythm: regular rhythm Heart sounds: S1 normal and S2 normal Skin: Trauma: no lacerations or abrasions Extrem: General: no pedal edema Objective Data Vital Signs Vital Signs: Vital Signs - 24 hr 04/28/19 14:00 04/28/19 14:46 04/28/19 14:52 Temperature 36.2 C L Pulse Rate 84 82 97 Respiratory Rate 16 18 16 Blood Pressure 138/83 Pulse Oximetry 100 04/28/19 19:25 04/28/19 19:35 04/28/19 22:00 Temperature 36.5 C Pulse Rate 92 94 85 Respiratory Rate 16 16 16 Blood Pressure 124/64 Pulse Oximetry 97 04/29/19 01:00 04/29/19 01:10 04/29/19 06:00 Temperature 36.4 C L Pulse Rate 95 95 92 Respiratory Rate 16 16 16 Blood Pressure 138/79 Pulse Oximetry 99 04/29/19 08:08 04/29/19 09:48 04/29/19 09:59 Temperature Pulse Rate 80 98 92 Respiratory Rate 16 18 18 Blood Pressure Pulse Oximetry 98 95 Intake/Output Intake/Output: Intake & Output 12/24/19 12/25/19 12/26/19 12/27/19 23:59 23:59 23:59 23:59 Intake Total 3857 2300 2410 1130 Output Total 2200 2000 2800 1600 Balance 1657 300 -390 -470 Meds/Results Medications: Active Medications Generic Name Dose Route Start Last Admin Trade Name Freq PRN Reason Stop Dose Admin Hydrocodone Bitart/Acetaminophen 1 tab 04/24/19 17:48 04/29/19 06:20 [place] 5-325 Mg PO 1 tab Q4H PRN Administration Pain Rated 4-6 Albuterol 2.5 mg 04/25/19 02:00 04/29/19 09:48 Albuterol Sulf Neb 2.5mg/0.5ml INHALATION 2.5 mg Q6HRT RAKESH Administration Benzonatate 200 mg 04/26/19 13:00 04/29/19 08:01 Tessalon Perles PO 200 mg TID RAKESH Administration Clonazepam 1 mg 04/24/19 21:44 04/28/19 00:26 Klonopin Tablet PO 1 mg Q8HR PRN Administration Anxiety Cyclobenzaprine HCl 10 mg 04/28/19 11:59 04/28/19 20:13 Flexeril PO 10 mg Q8H PRN Administration Muscle Spasm Enoxaparin Sodium 40 mg 04/25/19 09:00 04/29/19 08:01 Lovenox SUB-Q 40 mg DAILY RAKESH Administration Piperacillin Sod/Tazobactam Sod 4.5 gm in 100 mls @ 200 mls/hr 04/27/19 13:30 04/29/19 07:43 Zosyn 4.5 Gm/D5w 100 Ml IVPB Infused Q6HR RAKESH Infusion Vancomycin HCl 1,250 mg in 250 mls @ 200 mls/hr 04/29/19 10:00 04/29/19 10:01 Vancomycin 1,250 Mg/D5w 250 Ml IVPB 200 mls/hr Q12H RAKESH Administration Indomethacin 25 mg 04/27/19 12:00 04/29/19 08:01 Indocin PO 25 mg TIDWM RAKESH Administration Ipratropium [place] 0.5 mg 04/25/19 02:00 04/29/19 09:48 Atrovent Neb INHALATION 0.5 mg Q6HRT RAKESH Administration Methylprednisolone Sodium Succinate 40 mg 04/27/19 12:00 04/29/19 06:19
--- NOTE | 2019-04-29 12:07 | PM.IMPN ---
Progress Note: A&P Assessment and Plan (1) Right middle lobe pneumonia: Qualifiers: Pneumonia type: due to unspecified organism Qualified Code(s): J18.9 - Pneumonia, unspecified organism Code(s): J18.9 - Pneumonia, unspecified organism Status: Acute Assessment and Plan: ----- Feeling about the same as yesterday. CTA without evidence of pulmonary embolism but does show the right middle lobe pneumonia in addition to 5mm right lower lobe nodule, likely benign - Recommend follow-up CT in 12 months. Discussed case with Dr. Chance and appreciate his recommendations. Continue vancomycin and zosyn, Solu-Medrol. He recommended repeat chest XR Thursday. If no improvement over the weekend, may consider bronchoscopy Thursday. Strep and legionella antigens are pending. 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 She has no concerns for HIV and does not do IV drugs. Blood cultures with no growth to date. (2) Anxiety: Code(s): F41.9 - Anxiety disorder, unspecified Status: Chronic Assessment and Plan: ----- Stable. Continue with her Zoloft and her clonazepam. (3) Depression: Code(s): F32.9 - Major depressive disorder, single episode, unspecified Status: Chronic Assessment and Plan: ---- Stable. Continue with Zoloft . (4) Irritable bowel syndrome: Code(s): K58.9 - Irritable bowel syndrome without diarrhea Status: Chronic Assessment and Plan: -----One episode of diarrhea and vomiting after abx. No diarrhea or vomiting today. Subjective Date/time seen: 04/29/19 1000 Interval history: Pt is a 38-year-old female here for pneumonia. She reports feeling about the same as yesterday. She is still coughing quite a bit. She has chest wall discomfort from coughing. She denies nausea or vomiting. Review of Systems Review of Systems: Narrative: Twelve systems were reviewed with pertinent positives and negatives as per HPI. Exam Narrative: Exam Narrative: General: Well developed well nourished patient resting in bed in NAD HEENT: normocephalic Neck: supple Neuro: Alert and oriented x 4 CV: Rate and rhythm regular. Resp: Diffuse expiratory rhonchi and significant cough with deep breaths. Tolerating room air. Abd: Soft, non distended. No pain to palpation. Positive bowel sounds Extremities: No swelling, erythema, or pain to palpation. Objective Data Vital Signs Vital Signs: Last Vital Signs Temp 98.2 F 04/29/19 14:00 Pulse 83 04/29/19 14:46 Resp 16 04/29/19 14:46 BP 140/78 04/29/19 14:00 Pulse Ox 99 04/29/19 14:00 Intake/Output Intake/Output: Intake & Output 04/26/19 04/27/19 04/28/19 04/29/19 23:59 23:59 23:59 23:59 Intake Total 3857 2300 2410 1380 Output Total 2200 2000 2800 1600 Balance 1657 300 390 -220 Meds/Results Medications: Active Medications Generic Name Dose Route Start Last Admin Trade Name Freq PRN Reason Stop Dose Admin Hydrocodone Bitart/Acetaminophen 1 tab 04/24/19 17:48 04/29/19 11:31 [place] 5-325 Mg PO 1 tab Q4H PRN Administration Pain Rated 4-6 Albuterol 2.5 mg 04/25/19 02:00 04/29/19 09:48 Albuterol Sulf Neb 2.5mg/0.5ml INHALATION 2.5 mg Q6HRT RAKESH Administration Benzonatate 200 mg 04/26/19 13:00 04/29/19 08:01 Tessalon Perles PO 200 mg TID RAKESH Administration Clonazepam 1 mg 04/24/19 21:44 04/28/19 00:26 Klonopin Tablet PO 1 mg Q8HR PRN Administration Anxiety Cyclobenzaprine HCl 10 mg 04/28/19 11:59 04/28/19 20:13 Flexeril PO 10 mg Q8H PRN Administration Muscle Spasm Enoxaparin Sodium 40 mg 04/25/19 09:00 04/29/19 08:01 Lovenox SUB-Q 40 mg DAILY RAKESH Administration Piperacillin Sod/Tazobactam Sod 4.5 gm in 100 mls @ 200 mls/hr 04/27/19 13:30 04/29/19 11:32 Zosyn 4.5 Gm/D5w 100 Ml IVPB 100 mls/hr Q6HR RAKESH Administration Vancomycin HCl 1,250 mg in 250 mls @ 200 mls/hr
[2019-04-29] MEDS: CLONAZEPAM 0.5 MG TAB 1 MG PO (18:33)
[2019-04-29] MEDS: CYCLOBENZAPRINE HCL 10 MG TABLET PO (21:36)
[2019-04-30] VITALS (12 sets, daily range): BP systolic 120–150; BP diastolic 76–85; PULSE 71–96; RESP 16–20; TEMP 36.3–36.4; O2SAT 98–99
[2019-04-30] MEDS: ALBUTEROL SULFATE NEB 2.5 MG/0.5 ML INH INHALATION ×4 (01:03→20:55)
[2019-04-30] MEDS: IPRATROPIUM BR 0.02% INH SOLN 0.5 MG/2.5 ML VIAL INHALATION ×4 (01:03→20:55)
[2019-04-30] MEDS: methylPREDNISolone SOD SUCC 40 MG VIAL IV PUSH (05:32)
[2019-04-30 06:39] LABS: Basophils Absolute Auto 0.1 K/mm3 (0.0-0.1); Basophils Percent Auto 0.2 % (0.2-1.2); Hematocrit 37.4 % (37.0-47.0); Hemoglobin 12.3 g/dL (12.0-15.0); Immature Granulocyte Percent A 3.4 % (0-0.5); Lymphocytes Absolute Auto 1.35 K/mm3 (0.9-3.2); Lymphocytes Percent Auto 5.7 % (18.3-44.2); Mean Corpuscular HGB Conc 32.9 g/dl (32-36); Mean Corpuscular Hemoglobin 31.6 pg (26-34); Mean Corpuscular Volume 96.1 fl (80-100); Mean Platelet Volume 10.4 fl (7.4-10.4); Monocytes Percent Auto 4.1 % (2.6-8.5); Neutrophils Absolute Auto 20.4 K/mm3 (1.3-6.7); Neutrophils Percent Auto 86.6 % (45.5-73.1); Platelet Count Result 338 k/mm3 (150-375); Red Blood Count 3.89 M/mm3 (4.2-5.4); Red Cell Distribution Width 13.5 % (11.5-14.5); White Blood Count 23.6 K/mm3 (4.5-10.0)
[2019-04-30] MEDS: ENOXAPARIN 40 MG/0.4 ML SYRINGE SUB-Q (08:03)
[2019-04-30] MEDS: SERTRALINE HCL 50 MG TABLET 100 MG PO (08:03)
[2019-04-30] MEDS: PANTOPRAZOLE SOD SESQUIHYDRATE 20 MG TAB PO (08:03)
[2019-04-30] MEDS: INDOMETHACIN 25 MG CAPSULE PO ×3 (08:03→17:53)
[2019-04-30] MEDS: SACCHAROMYCES BOULARDII 250 MG CAPSULE PO ×3 (08:03→17:53)
[2019-04-30] MEDS: BENZONATATE 100 MG CAPSULE 200 MG PO ×3 (08:03→17:53)
--- NOTE | 2019-04-30 10:07 | PM.PNPUL ---
Progress Note: A&P Assessment and Plan (1) Bronchospasm with bronchitis, acute: Code(s): J20.9 - Acute bronchitis, unspecified Status: Acute Assessment and Plan: Will increase Solu-Medrol to 60 mg IV q.6 hours. Will increase her albuterol/Atrovent nebulizer to every 4 hours scheduled. (2) Right middle lobe pneumonia: Qualifiers: Pneumonia type: due to unspecified organism Qualified Code(s): J18.9 - Pneumonia, unspecified organism Code(s): J18.9 - Pneumonia, unspecified organism Status: Acute Assessment and Plan: Chest x-ray tomorrow morning. To be evaluated by Dr. King on providing and decide about bronchoscopy on Thursday. Subjective Date/time seen: 04/30/19 10:07 The patient continues to have shortness of breath and wheezing but no cough. She has no fever. CBC was significant leukocytosis but stable Exam Const: General: no acute distress Eyes: General: appearance normal, both eyes and all related structures Resp: Auscultation: wheezes expiratory wheezes and throughout Cardio: Rate: regular rate Rhythm: regular rhythm GI: Auscultation: normal bowel sounds Skin: General skin exam: no rashes or lesions noted Extrem: General: normal exam except as noted Psych: Affect: anxious affect Objective Data Vital Signs Vital Signs: Vital Signs - 24 hr 04/29/19 14:00 04/29/19 14:33 04/29/19 14:46 Temperature 36.8 C Pulse Rate 68 81 83 Respiratory Rate 16 16 16 Blood Pressure 140/78 Pulse Oximetry 99 04/29/19 19:04 04/29/19 19:12 04/29/19 20:50 Temperature Pulse Rate 77 79 94 Respiratory Rate 16 18 16 Blood Pressure Pulse Oximetry 97 04/29/19 22:00 04/30/19 01:04 04/30/19 01:13 Temperature 36.4 C Pulse Rate 76 71 77 Respiratory Rate 16 16 18 Blood Pressure 138/84 Pulse Oximetry 99 04/30/19 06:00 Temperature 36.4 C L Pulse Rate 87 Respiratory Rate 16 Blood Pressure 120/76 Pulse Oximetry 99 Intake/Output Intake/Output: Intake & Output 04/27/19 04/28/19 04/29/19 04/30/19 23:59 23:59 23:59 23:59 Intake Total 2300 2410 4170 740 Output Total 1999 2800 3300 0 Balance 300 -390 870 740 Meds/Results Medications: Active Medications Generic Name Dose Route Start Last Admin Trade Name Freq PRN Reason Stop Dose Admin Hydrocodone Bitart/Acetaminophen 1 tab 04/24/19 17:48 04/30/19 05:32 [place] 5-325 Mg PO 1 tab Q4H PRN Administration Pain Rated 4-6 Albuterol 2.5 mg 04/30/19 12:00 Albuterol Sulf Neb 2.5mg/0.5ml INHALATION Q4HRT [facility] Benzonatate 200 mg 04/26/19 13:00 04/30/19 08:03 Tessalon Perles PO 200 mg TID RAKESH Administration Clonazepam 1 mg 04/24/19 21:44 04/29/19 18:33 Klonopin Tablet PO 1 mg Q8HR PRN Administration Anxiety Cyclobenzaprine HCl 10 mg 04/28/19 11:59 04/29/19 21:36 Flexeril PO 10 mg Q8H PRN Administration Muscle Spasm Enoxaparin Sodium 40 mg 04/25/19 09:00 04/30/19 08:03 Lovenox SUB-Q 40 mg DAILY RAKEHS Administration Piperacillin Sod/Tazobactam Sod 4.5 gm in 100 mls @ 200 mls/hr 04/27/19 13:30 04/30/19 06:02 Zosyn 4.5 Gm/D5w 100 Ml IVPB Infused Q6HR RAKESH Infusion Vancomycin HCl 1,250 mg in 250 mls @ 200 mls/hr 04/29/19 10:00 04/29/19 22:51 Vancomycin 1,250 Mg/D5w 250 Ml IVPB Infused Q12H RAKESH Infusion Indomethacin 25 mg 04/27/19 12:00 04/30/19 08:03 Indocin PO 25 mg TIDWM RAKESH Administration Ipratropium [place] 0.5 mg 04/25/19 02:00 04/30/19 01:03 Atrovent Neb INHALATION 0.5 mg Q6HRT RAKESH Administration Ipratropium [place] 0.5 mg 04/30/19 12:00 Atrovent Neb INHALATION Q4HRT RAKESH Methylprednisolone Sodium Succinate 60 mg 04/30/19 12:00 Solu-Medrol IV PUSH Q6HR RAKESH Pantoprazole Sodium 20 mg 04/26/19 09:00 04/30/19 08:03 Protonix PO 20 mg QAM RAKESH Administration Promethazine HCl 12.5 mg 04/24/19 17:48 04/25/19 20:15 Phenergan Inj I
[2019-04-30] MEDS: methylPREDNISolone SOD SUCC 125 MG VIAL 60 MG IV PUSH ×2 (13:22→17:54)
[2019-04-30] MEDS: CLONAZEPAM 0.5 MG TAB 1 MG PO (19:52)
--- NOTE | 2019-04-30 20:10 | PM.IMPN ---
Progress Note: A&P Assessment and Plan (1) Right middle lobe pneumonia: Qualifiers: Pneumonia type: due to unspecified organism Qualified Code(s): J18.9 - Pneumonia, unspecified organism Code(s): J18.9 - Pneumonia, unspecified organism Status: Acute Assessment and Plan: -----the patient is not feeling any relief of the zosyn, vanc and IV steroids. I will add an antifungal because of her clinical course. The sputum is growing light growth of yeast which can be a contaminate but with her persistent symptoms it may be a true infection. Will add a CRP and HIV to her morning labs. Her WBC is elevated but not unexpected because of the IV steroids. Will add oxy 5mg to help with pain control. heating pad and indomethacin now providing relief. Her cough continues. CTA and pulmonology note reviewed. Blood cultures negative. (2) Anxiety: Code(s): F41.9 - Anxiety disorder, unspecified Status: Chronic Assessment and Plan: -----Continue with her Zoloft and her clonazepam. (3) Depression: Code(s): F32.9 - Major depressive disorder, single episode, unspecified Status: Chronic Assessment and Plan: ----Continue with Zoloft . (4) Irritable bowel syndrome: Code(s): K58.9 - Irritable bowel syndrome without diarrhea Status: Chronic Assessment and Plan: -----One episode of diarrhea and vomiting after abx. Bowels seem stable at this time. continue to monitor. (5) Right bundle branch block: Code(s): I45.10 - Unspecified right bundle-branch block Status: Acute Assessment and Plan: -----new since last month. Unusual for her age. will order an echo. Subjective Date/time seen: 04/30/19 20:10 Interval history: Pt is a 38-year-old female here for pneumonia. Patient was seen today with no alleviation in her pain or coughing. She is miserable and just wants to feel better. Earlier today she felt like she was going to pass out put that passed and now she does not have that feeling. She is still coughing and wheezing. She was able to eat a little more today. Overall she feels just as bad as the day she came into the hospital and the pain actually may be a little worse. Exam Narrative: Exam Narrative: General: Well developed well nourished patient resting in bed in NAD HEENT: normocephalic Neck: supple Neuro: Alert and oriented x 4 CV:RRR. pain to palpation to the right and left lateral intercostal muscles with slight palpation. Resp:rhonchi and significant cough with inspiration--unchanged. constant cough on exam. Abd: Soft, non distended. No pain to palpation. Positive bowel sounds Extremities: No swelling, erythema, or pain to palpation. Objective Data Vital Signs Vital Signs: Vital Signs - 24 hr 04/29/19 20:50 04/29/19 22:00 04/30/19 01:04 Temperature 97.6 F Pulse Rate 94 76 71 Respiratory Rate 16 16 16 Blood Pressure 138/84 Pulse Oximetry 97 99 04/30/19 01:13 04/30/19 06:00 04/30/19 11:02 Temperature 97.5 F L Pulse Rate 77 87 90 Respiratory Rate 18 16 20 Blood Pressure 120/76 Pulse Oximetry 99 99 04/30/19 11:13 04/30/19 14:00 04/30/19 15:00 Temperature 97.3 F L Pulse Rate 96 84 Respiratory Rate 18 16 Blood Pressure 121/76 150/85 H Pulse Oximetry 99 04/30/19 15:49 04/30/19 15:58 04/30/19 19:48 Temperature 97.4 F L Pulse Rate 81 92 78 Respiratory Rate 18 18 16 Blood Pressure 139/82 Pulse Oximetry 99 Intake/Output Intake/Output: Intake & Output 04/27/19 04/28/19 04/29/19 04/30/19 23:59 23:59 23:59 23:59 Intake Total 2300 2410 4170 1430 Output Total 1999 2800 3300 700 Balance 300 -390 870 730 Meds/Results Medications: Active Medications Generic Name Dose Route Start Last Admin Trade Name Freq PRN Reason Stop Dose Admin Hydrocodone Bitart/Acetaminophen 1 tab 04/24/19 17:48 04/30/19 19:52 [place] 5-325 Mg PO 1 tab Q4H PRN Adm
[2019-04-30 22:05] LABS: Pneumococcal Antigen Urine Not Detected (Not Detected)
[2019-04-30] MEDS: MICAFUNGIN SODIUM 100 MG in SODIUM CHLORIDE 0.9% IV 100 ML IVPB (22:19)
[2019-05-01] VITALS (17 sets, daily range): BP systolic 126–130; BP diastolic 73–80; PULSE 74–106; RESP 14–20; TEMP 36–36.3; O2SAT 98–100
[2019-05-01] MEDS: CYCLOBENZAPRINE HCL 10 MG TABLET PO (00:24)
[2019-05-01] MEDS: methylPREDNISolone SOD SUCC 125 MG VIAL 60 MG IV PUSH ×3 (00:24→20:32)
[2019-05-01] MEDS: IPRATROPIUM BR 0.02% INH SOLN 0.5 MG/2.5 ML VIAL INHALATION ×7 (00:25→23:03)
[2019-05-01] MEDS: ALBUTEROL SULFATE NEB 2.5 MG/0.5 ML INH INHALATION ×7 (00:25→23:03)
[2019-05-01] MEDS: ENOXAPARIN 40 MG/0.4 ML SYRINGE SUB-Q (08:06)
[2019-05-01] MEDS: BENZONATATE 100 MG CAPSULE 200 MG PO ×3 (08:06→17:14)
[2019-05-01] MEDS: INDOMETHACIN 25 MG CAPSULE PO ×3 (08:06→17:14)
[2019-05-01] MEDS: PANTOPRAZOLE SOD SESQUIHYDRATE 20 MG TAB PO (08:07)
[2019-05-01] MEDS: SERTRALINE HCL 50 MG TABLET 100 MG PO (08:07)
[2019-05-01] MEDS: SACCHAROMYCES BOULARDII 250 MG CAPSULE PO ×3 (08:07→17:14)
--- NOTE | 2019-05-01 09:06 | PM.IMPN ---
Progress Note: A&P Assessment and Plan (1) Right middle lobe pneumonia: Qualifiers: Pneumonia type: due to unspecified organism Qualified Code(s): J18.9 - Pneumonia, unspecified organism Code(s): J18.9 - Pneumonia, unspecified organism Status: Acute Assessment and Plan: -----The patient finally feels better today and her CXR has improved as well. We will continue with zosyn, vanc and then decrease IV steroids. Antifungal was added yesterday which I do not think would make the CXR improve this much but we will continue it at this time. The sputum is growing light growth of yeast which can be a contaminate but with her persistent symptoms it may be a true infection. I have asked lab to identify it. CRP elevated. HIV pending. Her WBC is elevated but not unexpected because of the IV steroids. CTA and pulmonology note reviewed. Blood cultures negative. (2) Anxiety: Code(s): F41.9 - Anxiety disorder, unspecified Status: Chronic Assessment and Plan: -----Continue with her Zoloft and her clonazepam. (3) Depression: Code(s): F32.9 - Major depressive disorder, single episode, unspecified Status: Chronic Assessment and Plan: ----Continue with Zoloft . (4) Irritable bowel syndrome: Code(s): K58.9 - Irritable bowel syndrome without diarrhea Status: Chronic Assessment and Plan: -----One episode of diarrhea and vomiting after abx. She has not had a BM since. Will add miralax. continue to monitor. (5) Right bundle branch block: Code(s): I45.10 - Unspecified right bundle-branch block Status: Acute Assessment and Plan: -----new since last month. Unusual for her age. will order an echo. Subjective Date/time seen: 05/01/19 09:06 Interval history: Pt is a 38-year-old female here for pneumonia. Patient was seen today and feeling a little better. She was able to eat breakfast today. She is still having pleuretic pain that is significant. She is not coughing as much and is able to take deeper breaths. She denies swelling in her legs. She had diarrhea days ago but now hasn't had a BM. Overall she states this is the first day that she has felt improvement. Exam Narrative: Exam Narrative: General: Well developed well nourished patient resting in bed in NAD HEENT: normocephalic Neck: supple Neuro: Alert and oriented x 4 CV:RRR. pain to palpation to the right and left lateral intercostal muscles with slight palpation. Resp:less ronchi on exam with no wheeze. No cough on exam. Much improved. Abd: Soft, non distended. No pain to palpation. Positive bowel sounds Extremities: No swelling, erythema, or pain to palpation. Objective Data Vital Signs Vital Signs: Vital Signs - 24 hr 04/30/19 11:02 04/30/19 11:13 04/30/19 14:00 Temperature 97.3 F L Pulse Rate 90 96 84 Respiratory Rate 20 18 16 Blood Pressure 121/76 Pulse Oximetry 99 99 04/30/19 15:00 04/30/19 15:49 04/30/19 15:58 Temperature Pulse Rate 81 92 Respiratory Rate 18 18 Blood Pressure 150/85 H Pulse Oximetry 04/30/19 19:48 04/30/19 20:55 04/30/19 21:05 Temperature 97.4 F L Pulse Rate 78 94 94 Respiratory Rate 16 18 18 Blood Pressure 139/82 Pulse Oximetry 99 98 05/01/19 00:10 05/01/19 00:34 05/01/19 03:54 Temperature Pulse Rate 92 92 76 Respiratory Rate 18 18 16 Blood Pressure Pulse Oximetry 05/01/19 04:04 05/01/19 06:00 05/01/19 07:48 Temperature 97 F L Pulse Rate 76 76 88 Respiratory Rate 16 14 16 Blood Pressure 130/80 Pulse Oximetry 100 99 05/01/19 07:59 Temperature Pulse Rate 83 Respiratory Rate 20 Blood Pressure Pulse Oximetry Intake/Output Intake/Output: Intake & Output 04/28/19 04/29/19 04/30/19 05/01/19 23:59 23:59 23:59 23:59 Intake Total 2410 4170 1780 915 Output Total 2800 3300 700 750 Balance -716 308 2525 165 Meds/Results Medications: Act
[2019-05-01 10:04] LABS: Alanine Aminotransferase 57 U/L (4-35); Albumin Level 3.5 g/dL (3.5-5.1); Alkaline Phosphatase 103 U/L (38-126); Aspartate Amino Transferase 31 U/L (14-36); Bilirubin,Total 0.4 mg/dL (0.2-1.3); Blood Urea Nitrogen 27 mg/dL (7-17); Calcium 8.8 mg/dL (8.4-10.2); Carbon Dioxide 24 mmol/L (22-30); Chloride 99 mmol/L (98-107); Estimated CRCL calculation 78 ml/min; Estimated Glomerular Filt Rate > 60; Glucose 189 mg/dL (65-105); Hematocrit 38.3 % (37.0-47.0); Hemoglobin 12.8 g/dL (12.0-15.0); Mean Corpuscular HGB Conc 33.4 g/dl (32-36); Mean Corpuscular Volume 95.8 fl (80-100); Mean Platelet Volume 10.4 fl (7.4-10.4); Platelet Count Result 349 k/mm3 (150-375); Potassium 3.7 mmol/L (3.4-5.0); Red Cell Distribution Width 13.5 % (11.5-14.5); Sodium 134 mmol/L (137-145); White Blood Count 22.2 K/mm3 (4.5-10.0)
[2019-05-01 10:11] LABS: Vancomycin Trough 12.9 ug/mL (10.0-20.0)
[2019-05-01] MEDS: POLYETHYLENE GLYCOL 3350 17 GM POWD.PACK PO (10:23)
--- NOTE | 2019-05-01 14:10 | PM.PNPUL ---
Progress Note: A&P Assessment and Plan (1) Bronchospasm with bronchitis, acute: Code(s): J20.9 - Acute bronchitis, unspecified Status: Acute Assessment and Plan: Yesterday she had an increase in Solu-Medrol to 60 mg IV q.6 hours and increase frequency of albuterol/Atrovent nebulizer to every 4 hours scheduled. WBC remains high, and she continues to have slow recovery. Will plan on bronchoscopy tomorrow to recover specimen for studies and to improve aeration of right middle lobe. Will repeat CXR and CBC tomorrow am. If these are significantly improved, will cancel procedure. NPO after midnight. (2) Right middle lobe pneumonia: Qualifiers: Pneumonia type: due to unspecified organism Qualified Code(s): J18.9 - Pneumonia, unspecified organism Code(s): J18.9 - Pneumonia, unspecified organism Status: Acute Assessment and Plan: Chest x-ray tomorrow morning with CBC with diff. If no better, bronchoscopy on Wednesday 05/02. Subjective Date/time seen: 05/01/19 14:10 This 38 yo female is seen in follow up for RML pneumonia. She does not feel better, remains on room air and is able to eat, drink, walk around however feels exhausted. She is not able to expectorate any secretions, complains of her chest feeling heavy. Sharona Rushing started Micafungin last night. White blood cell count is slightly lower, 22.2K, and CXR is marginally improved. She has been in the hospital 7 days. Antibiotics: Pip-tazo 04/27 day#5 Vanco 04/29 day#3 Micafungin 04/30 day#2 Review of Systems Constitutional: Constitutional: Reports as per HPI Eyes: Eyes: Reports no additional eye complaints ENT: Reports nasal congestion and Reports nasal discharge Cardiovascular: Cardiovascular: Reports no additional cardiovascular complaints Respiratory: Respiratory: Reports as per HPI Gastrointestinal: Gastrointestinal: Reports heartburn and Reports diarrhea Genitourinary: Genitourinary: Reports no additional female genitourinary complaints Musculoskeletal: Musculoskeletal: Reports no additional musculoskeletal complaints Psychiatric: Psychiatric: Reports anxiety Exam Const: General: comfortable and no acute distress HENMT: Face and sinus: normal facial exam Eyes: General: appearance normal, both eyes and all related structures Pupils: PERRL Neck: Neck: full ROM, no lymphadenopathy, supple and no JVD Thyroid: thyroid normal Lymphatic: lymphadenopathy Chest: Chest palpation & inspection: normal inspection of the chest Resp: Auscultation: rhonchi throughout and wheezes expiratory wheezes and throughout Cardio: Rate: regular rate Rhythm: regular rhythm Heart sounds: S1 normal and S2 normal GI: Auscultation: normal bowel sounds Skin: General skin exam: no rashes or lesions noted Trauma: no lacerations or abrasions Neuro: Cranial nerves: Yes PERRL Extrem: General: normal to inspection, normal exam except as noted and no pedal edema Psych: Affect: anxious affect Objective Data Vital Signs Vital Signs: Vital Signs - 24 hr 04/30/19 15:00 04/30/19 15:49 04/30/19 15:58 Temperature Pulse Rate 81 92 Respiratory Rate 18 18 Blood Pressure 150/85 H Pulse Oximetry 04/30/19 19:48 04/30/19 20:55 04/30/19 21:05 Temperature 36.3 C L Pulse Rate 78 94 94 Respiratory Rate 16 18 18 Blood Pressure 139/82 Pulse Oximetry 99 98 05/01/19 00:10 05/01/19 00:34 05/01/19 03:54 Temperature Pulse Rate 92 92 76 Respiratory Rate 18 18 16 Blood Pressure Pulse Oximetry 05/01/19 04:04 05/01/19 06:00 05/01/19 07:48 Temperature 36.1 C L Pulse Rate 76 76 88 Respiratory Rate 16 14 16 Blood Pressure 130/80 Pulse Oximetry 100 99 05/01/19 07:59 05/01/19 11:30 05/01/19 11:38 Temperature Pulse Rate 83 82 85 Respiratory Rate 20 20 20 Blood Pressure Pulse Oximetry 05/01/19 14:00 Temperature 36.0 C L Pulse Rate 103 H Respiratory Rate 18 Blood Pres
[2019-05-01 15:49] LABS: Legionella pneumophila Ag Ur Not Detected (Not Detected)
[2019-05-01] MEDS: MICAFUNGIN SODIUM 100 MG in SODIUM CHLORIDE 0.9% IV 100 ML IVPB (20:27)
[2019-05-02] VITALS (19 sets, daily range): BP systolic 105–147; BP diastolic 59–91; PULSE 70–97; RESP 14–24; TEMP 36.2–36.7; O2SAT 98–100
--- NOTE | 2019-05-02 | ECHO_ITS ---
Patient Info Name: Lana Valentin Age: 38 years : 1980 Gender: Female Ht: 63 in Wt: 138 lbs BSA: 1.68 m2 HR: 77 bpm BP: 125 / 76 mmHg Heart Rhythm: Sinus Rhythm Technical Quality: Good Exam Date: 05/02/2019 10:45 AM Exam Location: [facility] Card Pulmonary Patient Status: Inpatient Admit Date: 04/24/2019 Staff Ordering Physician: Sharona Rushing PA-C Systems Software Specialist: Keren Viramontes RDCS Attending Provider: Sharona Rushing PA-C Referring Physician: Сергей MALDONADO; Exam Type: CA echo doppler color flow Study Info Indications I45.10 - Unspecified right bundle-branch block Complete two-dimensional, color flow and Doppler transthoracic echocardiogram is performed. Summary 1. Left ventricular systolic function is normal, estimated at 55-60%. 2. There is no increased left ventricular wall thickness. 3. Left ventricular septal wall motion is normal. 4. The left ventricular diastolic function is normal. 5. There is mild mitral valve regurgitation. 6. There is no aortic valve stenosis. 7. No pulmonary hypertension, estimated pulmonary arterial systolic pressure is 29 mmHg. 8. There is trace tricuspid valve regurgitation. 9. There is trivial pericardial effusion. Left Ventricle Left ventricular chamber dimension is normal. Left ventricular systolic function is normal, estimated at 55-60%. There is no increased left ventricular wall thickness. Left ventricular septal wall motion is normal. The left ventricular diastolic function is normal. Right Ventricle Right ventricular chamber dimension is normal. Right ventricular systolic function is normal. Left Atria Left atrial chamber dimension is normal. Right Atria Right atrial chamber dimension is normal. Aortic Valve The aortic valve is trileaflet. There is no aortic valve stenosis. There is no aortic valve regurgitation. Pulmonic Valve The pulmonic valve is not well visualized. There is trace pulmonic regurgitation. Mitral Valve The mitral valve has normal leaflets. There is mild mitral valve regurgitation. Tricuspid Valve The tricuspid valve leaflets are normal. There is trace tricuspid valve regurgitation. No pulmonary hypertension, estimated pulmonary arterial systolic pressure is 29 mmHg. Pericardium/Pleural The pericardium appears normal. There is trivial pericardial effusion. Inferior Vena Cava Normal inferior vena cava with >50% collapse upon inspiration consistent with normal right atrial pressure, 5 mmHg. Aorta The aortic root size at the sinus of Valsalva is normal. Left Ventricular Outflow Tract Name Value Normal LVOT 2D LVOT Diameter 2.0 cm LVOT Doppler LVOT Peak Gradient 4 mmHg LVOT Mean Gradient 2 mmHg LVOT VTI 22 cm LVOT VTI/AV VTI Ratio 0.9 LVOT Stroke Volume 70 ml LVOT CO 14.3 l/min LVOT CI 8.5 l/min/m2 Pulmonic Valve
[2019-05-02] MEDS: IPRATROPIUM BR 0.02% INH SOLN 0.5 MG/2.5 ML VIAL INHALATION ×4 (03:02→17:27)
[2019-05-02] MEDS: ALBUTEROL SULFATE NEB 2.5 MG/0.5 ML INH INHALATION ×4 (03:02→17:29)
[2019-05-02 06:47] LABS: Basophils Absolute Auto 0.1 K/mm3 (0.0-0.1); Basophils Percent Auto 0.4 % (0.2-1.2); Hematocrit 37.5 % (37.0-47.0); Hemoglobin 12.3 g/dL (12.0-15.0); Immature Granulocyte Absolute 1.13 K/mm3 (0.00-0.031); Immature Granulocyte Percent A 5.8 % (0-0.5); Lymphocytes Absolute Auto 1.69 K/mm3 (0.9-3.2); Lymphocytes Percent Auto 8.7 % (18.3-44.2); Mean Corpuscular HGB Conc 32.8 g/dl (32-36); Mean Corpuscular Hemoglobin 31.8 pg (26-34); Mean Corpuscular Volume 96.9 fl (80-100); Mean Platelet Volume 9.8 fl (7.4-10.4); Monocytes Percent Auto 5.2 % (2.6-8.5); Neutrophils Absolute Auto 15.6 K/mm3 (1.3-6.7); Neutrophils Percent Auto 79.9 % (45.5-73.1); Platelet Count Result 310 k/mm3 (150-375); Red Blood Count 3.87 M/mm3 (4.2-5.4); Red Cell Distribution Width 13.7 % (11.5-14.5); White Blood Count 19.5 K/mm3 (4.5-10.0)
[2019-05-02 07:04] LABS: Alanine Aminotransferase 50 U/L (4-35); Albumin Level 3.1 g/dL (3.5-5.1); Alkaline Phosphatase 73 U/L (38-126); Aspartate Amino Transferase 31 U/L (14-36); Bilirubin,Total 0.2 mg/dL (0.2-1.3); Blood Urea Nitrogen 26 mg/dL (7-17); Calcium 8.3 mg/dL (8.4-10.2); Carbon Dioxide 27 mmol/L (22-30); Chloride 101 mmol/L (98-107); Estimated CRCL calculation 69 ml/min; Estimated Glomerular Filt Rate > 60; Glucose 124 mg/dL (65-105); Potassium 4.3 mmol/L (3.4-5.0); Sodium 136 mmol/L (137-145)
[2019-05-02] MEDS: PANTOPRAZOLE SOD SESQUIHYDRATE 20 MG TAB PO (08:03)
[2019-05-02] MEDS: BENZONATATE 100 MG CAPSULE 200 MG PO ×2 (08:03→16:32)
[2019-05-02] MEDS: SACCHAROMYCES BOULARDII 250 MG CAPSULE PO ×2 (08:03→16:33)
[2019-05-02] MEDS: CLONAZEPAM 0.5 MG TAB 1 MG PO (08:04)
[2019-05-02] MEDS: methylPREDNISolone SOD SUCC 125 MG VIAL 60 MG IV PUSH (08:04)
[2019-05-02] MEDS: SERTRALINE HCL 50 MG TABLET 100 MG PO (08:04)
--- NOTE | 2019-05-02 10:47 | PCDIET ---
Weekly nutritional screen. Patient is tolerating current diet with adequate intake. No weight loss reported. No nutritional needs at this time.
--- NOTE | 2019-05-02 11:23 | PM.PNPUL ---
Progress Note: A&P Assessment and Plan (1) Bronchospasm with bronchitis, acute: Code(s): J20.9 - Acute bronchitis, unspecified Status: Acute Assessment and Plan: She has persistent infiltrates in the RML, not responding to Solu-Medrol 60 mg IV q.6 hours, albuterol/Atrovent nebulizer every 4 hours scheduled. WBC remains high, slightly lower, so will proceed with bronchoscopy. (2) Right middle lobe pneumonia: Qualifiers: Pneumonia type: due to unspecified organism Qualified Code(s): J18.9 - Pneumonia, unspecified organism Code(s): J18.9 - Pneumonia, unspecified organism Status: Acute Assessment and Plan: Chest x-ray no better today. Subjective Date/time seen: 05/02/19 11:23 This 38 yo female is seen in follow up for RML pneumonia. She does not feel better, remains on room air, exhausted. Continues antibiotics and Micafungin. White blood cell count is slightly lower, 19 K, CXR is same as 05/01, in-patient for 8 days. Will plan on bronch at 14:00. She is not feeling any better. Tearful. Review of Systems Constitutional: Constitutional: Reports as per HPI Eyes: Eyes: Reports no additional eye complaints ENT: Reports nasal congestion and Reports nasal discharge Cardiovascular: Cardiovascular: Reports no additional cardiovascular complaints Respiratory: Respiratory: Reports as per HPI Gastrointestinal: Gastrointestinal: Reports heartburn and Reports diarrhea Genitourinary: Genitourinary: Reports no additional female genitourinary complaints Musculoskeletal: Musculoskeletal: Reports no additional musculoskeletal complaints Psychiatric: Psychiatric: Reports anxiety Exam Const: General: comfortable and no acute distress HENMT: Face and sinus: normal facial exam Eyes: General: appearance normal, both eyes and all related structures Pupils: PERRL Neck: Neck: full ROM, no lymphadenopathy, supple and no JVD Thyroid: thyroid normal Lymphatic: lymphadenopathy Chest: Chest palpation & inspection: normal inspection of the chest Resp: Auscultation: rhonchi throughout and wheezes expiratory wheezes and throughout Cardio: Rate: regular rate Rhythm: regular rhythm Heart sounds: S1 normal and S2 normal GI: Auscultation: normal bowel sounds Skin: General skin exam: no rashes or lesions noted Trauma: no lacerations or abrasions Neuro: Cranial nerves: Yes PERRL Extrem: General: normal to inspection, normal exam except as noted and no pedal edema Psych: Affect: anxious affect Objective Data Vital Signs Vital Signs: Vital Signs - 24 hr 05/01/19 11:30 05/01/19 11:38 05/01/19 14:00 Temperature 36.0 C L Pulse Rate 82 85 103 H Respiratory Rate 20 20 18 Blood Pressure 126/76 Pulse Oximetry 98 05/01/19 16:40 05/01/19 16:48 05/01/19 19:17 Temperature Pulse Rate 83 90 82 Respiratory Rate 20 20 20 Blood Pressure Pulse Oximetry 05/01/19 19:28 05/01/19 20:31 05/01/19 23:03 Temperature 36.3 C L Pulse Rate 88 106 H 74 Respiratory Rate 20 16 18 Blood Pressure 127/73 Pulse Oximetry 98 05/01/19 23:11 05/02/19 03:02 05/02/19 03:10 Temperature Pulse Rate 76 70 84 Respiratory Rate 20 18 20 Blood Pressure Pulse Oximetry 05/02/19 05:13 05/02/19 07:40 05/02/19 07:52 Temperature 36.2 C L Pulse Rate 77 74 77 Respiratory Rate 14 16 20 Blood Pressure 125/76 Pulse Oximetry 99 Intake/Output Intake/Output: Intake & Output 04/29/19 04/30/19 05/01/19 05/02/19 23:59 23:59 23:59 23:59 Intake Total 4170 1780 2435 750 Output Total 3300 700 1050 1050 Balance 870 1080 1385 -300 Meds/Results Medications: Active Medications Generic Name Dose Route Start Last Admin Trade Name Freq PRN Reason Stop Dose Admin Hydrocodone Bitart/Acetaminophen 1 tab 04/24/19 17:48 05/01/19 05:26 [place] 5-325 Mg PO 1 tab Q4H PRN Administration Pain Rated 4-6 Albuterol 2.5 mg 04/30/19 12:00 05/02/19 07:40
--- NOTE | 2019-05-02 14:18 | WPDANESEPPF ---
Anes - Initial Pre Proc Eval Procedure: Operation Date: 05/02/19 14:30 Proposed Procedures p Flexible Bronchoscopy - Neeta King MD Date/Time: 05/02/19 14:18 Surgeon: Sharona Rushing PA-C Pre Op Diagnosis: sepsis/pneumonia Patient Data Age: 38 Gender: F Height: 5 ft 3 in Weight: 63 kg Last Vital Signs Temp 36.2 C L 05/02/19 05:13 Pulse 75 05/02/19 11:41 Resp 16 05/02/19 11:41 BP 125/76 05/02/19 05:13 Pulse Ox 99 05/02/19 05:13 Allergies Allergy/AdvReac Type Severity Reaction Status Date / Time No Known Allergies Allergy Verified 05/02/19 13:58 Home Medications Medication Instructions Recorded Confirmed Type albuterol sulfate [ProAir HFA] 2 puff INHALATION QID PRN #6.7 gm 03/24/19 04/24/19 Rx sertraline 100 mg PO DAILY 03/24/19 04/24/19 History clonazepam 1 mg PO Q8H PRN 04/24/19 04/25/19 History Laboratory Tests 04/28/19 05/02/19 05/02/19 18:02 06:38 06:38 WBC 19.5 K/mm3 H K/mm3 (4.5-10.0) RBC 3.87 M/mm3 L M/mm3 (4.2-5.4) Hgb 12.3 g/dL g/dL (12.0-15.0) Hct 37.5 % % (37.0-47.0) MCV 96.9 fl fl (80-100) MCH 31.8 pg pg (26-34) MCHC 32.8 g/dl g/dl (32-36) RDW 13.7 % % (11.5-14.5) Plt Count 310 k/mm3 k/mm3 (150-375) MPV 9.8 fl fl (7.4-10.4) Immature Gran % (Auto) 5.8 % H % (0-0.5) Neut % (Auto) 79.9 % H % (45.5-73.1) Lymph % (Auto) 8.7 % L % (18.3-44.2) Reynolds % (Auto) 5.2 % % (2.6-8.5) Eos % (Auto) 0.0 % % (0-4.4) Baso % (Auto) 0.4 % % (0.2-1.2) Lymph # (Auto) 1.69 K/mm3 K/mm3 (0.9-3.2) Reynolds # (Auto) 1.0 K/mm3 H K/mm3 (0.1-0.6) Eos # (Auto) 0.0 K/mm3 K/mm3 (0-0.3) Baso # (Auto) 0.1 K/mm3 K/mm3 (0.0-0.1) Abs Immat Gran (auto) 1.13 K/mm3 H K/mm3 (0.00-0.031) Absolute Neuts (auto) 15.6 K/mm3 H K/mm3 (1.3-6.7) Absolute Nucleated RBC 0.0 K/mm3 K/mm3 (0.0-0.012) Nucleated RBC % 0.0 % % (0.0-0.2) Sodium 136 mmol/L L mmol/L (137-145) Potassium 4.3 mmol/L mmol/L (3.4-5.0) Chloride 101 mmol/L mmol/L (98-107) Carbon Dioxide 27 mmol/L mmol/L (22-30) BUN 26 mg/dL H mg/dL (7-17) Creatinine 0.80 mg/dL mg/dL (0.7-1.0) Estim Creat Clear Calc 69 ml/min ml/min Estimated GFR > 60 (59 - ) Glucose 124 mg/dL H mg/dL (65-105) Calcium 8.3 mg/dL L mg/dL (8.4-10.2) Total Bilirubin 0.2 mg/dL mg/dL (0.2-1.3) AST 31 U/L U/L (14-36) ALT 50 U/L H U/L (4-35) Alkaline Phosphatase 73 U/L U/L (38-126) Total Protein 6.0 g/dL L g/dL (6.3-8.2) Albumin 3.1 g/dL L g/dL (3.5-5.1) Ur L.pneumophila Ag Not detected (Not Detected) Patient hx anesthesia problems: none Family hx anesthesia problems: none [facility] Past Medical History Medical History Anxiety Depression Irritable bowel syndrome With diarrhea Surgical History Surgical History History of salpingectomy Family History Family History Mother Diabetes mellitus Hypothyroidism Anxiety Depression Father Fibromyalgia Other Heart disease Pneumonia Social History Social History Social History: She has 1 daughter. She does not have a durable power health care attorney. She lives on her own with her daughter. 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 She said she quit smoking and drinking when she got with her daughter. She was a social drinker and social smoker. She is a full code. Smoking status
[2019-05-02] MEDS: LACTATED RINGERS 1,000 ML 150 ML IV CONT ×2 (14:20→14:29)
--- NOTE | 2019-05-02 14:30 | PM.IMPN ---
Progress Note: A&P Assessment and Plan (1) Right middle lobe pneumonia: Qualifiers: Pneumonia type: due to unspecified organism Qualified Code(s): J18.9 - Pneumonia, unspecified organism Code(s): J18.9 - Pneumonia, unspecified organism Status: Acute Assessment and Plan: -----the patient has persistent pneumonia symptoms and will be getting a bronch later today. We will continue with zosyn, vanc and the steroids. Antifungal was added because the sputum is growing light growth of yeast which can be a contaminate but with her persistent symptoms it may be a true infection. We will know more with the bronch. I have asked lab to identify it and that is still pending. CRP elevated. HIV pending. Her WBC is elevated but not unexpected because of the IV steroids. CTA and pulmonology note reviewed. Blood cultures negative. (2) Anxiety: Code(s): F41.9 - Anxiety disorder, unspecified Status: Chronic Assessment and Plan: -----Continue with her Zoloft and her clonazepam. (3) Depression: Code(s): F32.9 - Major depressive disorder, single episode, unspecified Status: Chronic Assessment and Plan: ----Continue with Zoloft . (4) Irritable bowel syndrome: Code(s): K58.9 - Irritable bowel syndrome without diarrhea Status: Chronic Assessment and Plan: -----One episode of diarrhea and vomiting after abx. She did have a BM yesterday although not charted. (5) Right bundle branch block: Code(s): I45.10 - Unspecified right bundle-branch block Status: Acute Assessment and Plan: -----new since last month. Unusual for her age. Echo ordered and pending. Subjective Date/time seen: 05/02/19 14:30 Interval history: Pt is a 38-year-old female here for pneumonia. Patient was seen today and states she goes about the same. She is not coughing much anymore and mostly just had pleuritic pain. She coughs when she takes big breaths and she has been wheezing. She has been trying to eat more. She denies nausea, vomiting, fevers or chills. Exam Narrative: Exam Narrative: General: Well developed well nourished patient resting in bed in NAD HEENT: normocephalic Neck: supple Neuro: Alert and oriented x 4 CV:RRR. pain to palpation to the right and left lateral intercostal muscles with slight palpation. Resp: Rhonchi and expiratory wheeze today with cough on exam--worse than yesterday. Abd: Soft, non distended. No pain to palpation. Positive bowel sounds Extremities: No swelling, erythema, or pain to palpation. Objective Data Vital Signs Vital Signs: Vital Signs - 24 hr 05/01/19 16:40 05/01/19 16:48 05/01/19 19:17 Temperature Pulse Rate 83 90 82 Respiratory Rate 20 20 20 Blood Pressure Pulse Oximetry 05/01/19 19:28 05/01/19 20:31 05/01/19 23:03 Temperature 97.4 F L Pulse Rate 88 106 H 74 Respiratory Rate 20 16 18 Blood Pressure 127/73 Pulse Oximetry 98 05/01/19 23:11 05/02/19 03:02 05/02/19 03:10 Temperature Pulse Rate 76 70 84 Respiratory Rate 20 18 20 Blood Pressure Pulse Oximetry 05/02/19 05:13 05/02/19 07:40 05/02/19 07:52 Temperature 97.1 F L Pulse Rate 77 74 77 Respiratory Rate 14 16 20 Blood Pressure 125/76 Pulse Oximetry 99 05/02/19 11:33 05/02/19 11:41 05/02/19 14:21 Temperature 97.6 F Pulse Rate 79 75 80 Respiratory Rate 16 16 20 Blood Pressure 141/75 H Pulse Oximetry 98 Intake/Output Intake/Output: Intake & Output 04/29/19 04/30/19 05/01/19 05/02/19 23:59 23:59 23:59 23:59 Intake Total 4170 1780 2435 850 Output Total 3300 700 1050 1050 Balance 870 1080 1385 -200 Meds/Results Medications: Active Medications Generic Name Dose Route Start Last Admin Trade Name Freq PRN Reason Stop Dose Admin Hydrocodone Bitart/Acetaminophen 1 tab 04/24/19 17:48 05/01/19 05:26 [place] 5-325 Mg PO 1 tab Q4H P
[2019-05-02] MEDS: LIDOCAINE HCL 2% LOCAL INJ 20 ML VIAL 8 ML INFILTRATE (14:56)
--- NOTE | 2019-05-02 14:59 | PM.OP ---
Procedure Note - Brief Procedure Note - Brief Date of procedure: 05/02/19 Pre-op diagnosis: sepsis/pneumonia Surgeon: Bronchoscopy note Neeta King MD
--- NOTE | 2019-05-02 15:26 | SUR.OPER ---
150 ml NS given intrabronchial, 30ml out in washings
[2019-05-02] MEDS: INDOMETHACIN 25 MG CAPSULE PO (16:33)
[2019-05-02] MEDS: ENOXAPARIN 40 MG/0.4 ML SYRINGE SUB-Q (16:34)
[2019-05-02 20:41] LABS: Appearance Bronchial Fluid Cloudy; Color Bronchial Fluid White; Lymphocytes Bronchial Fluid 6 %; Macrophages Bronchial Fluid 2; Neutrophils Bronchial Fluid 92 %; Source Bronchial Fluid Bronchial Washings
[2019-05-02 20:42] LABS: Eosinophils Bronchial Fluid 0 %; Monocytes Bronchial Fluid 0 %; Other Cells Bronchial Fluid 0 %
[2019-05-02] MEDS: MICAFUNGIN SODIUM 100 MG in SODIUM CHLORIDE 0.9% IV 100 ML IVPB (20:49)
[2019-05-03] VITALS (13 sets, daily range): BP systolic 122–129; BP diastolic 58–84; PULSE 72–81; RESP 16–20; TEMP 36.3–36.7; O2SAT 99–100
[2019-05-03] MEDS: IPRATROPIUM BR 0.02% INH SOLN 0.5 MG/2.5 ML VIAL INHALATION ×6 (02:26→15:26)
[2019-05-03] MEDS: ALBUTEROL SULFATE NEB 2.5 MG/0.5 ML INH INHALATION ×6 (02:26→15:26)
[2019-05-03 05:48] LABS: Hematocrit 37.2 % (37.0-47.0); Mean Corpuscular HGB Conc 32.3 g/dl (32-36); Mean Corpuscular Hemoglobin 31.1 pg (26-34); Mean Corpuscular Volume 96.4 fl (80-100); Mean Platelet Volume 10.1 fl (7.4-10.4); Platelet Count Result 318 k/mm3 (150-375); Red Blood Count 3.86 M/mm3 (4.2-5.4); White Blood Count 19.3 K/mm3 (4.5-10.0)
[2019-05-03 05:53] LABS: Alanine Aminotransferase 40 U/L (4-35); Albumin Level 2.9 g/dL (3.5-5.1); Alkaline Phosphatase 71 U/L (38-126); Aspartate Amino Transferase 21 U/L (14-36); Bilirubin,Total 0.2 mg/dL (0.2-1.3); Blood Urea Nitrogen 28 mg/dL (7-17); Calcium 8.3 mg/dL (8.4-10.2); Carbon Dioxide 29 mmol/L (22-30); Chloride 99 mmol/L (98-107); Estimated CRCL calculation 69 ml/min; Estimated Glomerular Filt Rate > 60; Glucose 95 mg/dL (65-105); Potassium 4.3 mmol/L (3.4-5.0); Sodium 133 mmol/L (137-145)
[2019-05-03 05:56] LABS: Magnesium 2.4 mg/dL (1.6-2.3)
[2019-05-03] MEDS: SERTRALINE HCL 50 MG TABLET 100 MG PO (08:50)
[2019-05-03] MEDS: BENZONATATE 100 MG CAPSULE 200 MG PO ×3 (08:50→17:27)
[2019-05-03] MEDS: INDOMETHACIN 25 MG CAPSULE PO ×3 (08:51→17:28)
[2019-05-03] MEDS: SACCHAROMYCES BOULARDII 250 MG CAPSULE PO ×3 (08:51→17:28)
[2019-05-03] MEDS: predniSONE 20 MG TABLET 40 MG PO (08:51)
[2019-05-03] MEDS: POLYETHYLENE GLYCOL 3350 17 GM POWD.PACK PO (08:51)
[2019-05-03] MEDS: PANTOPRAZOLE SOD SESQUIHYDRATE 20 MG TAB PO (08:52)
[2019-05-03] MEDS: ENOXAPARIN 40 MG/0.4 ML SYRINGE SUB-Q (09:18)
[2019-05-03] MEDS: CLONAZEPAM 0.5 MG TAB 1 MG PO (10:17)
--- NOTE | 2019-05-03 10:30 | PM.DS ---
DS: Diagnosis Admitting Diagnosis Admitting Diagnosis: Sepsis, unspecified organism Discharge Diagnosis (1) Right middle lobe pneumonia: Qualifiers: Pneumonia type: due to unspecified organism Qualified Code(s): J18.9 - Pneumonia, unspecified organism Code(s): J18.9 - Pneumonia, unspecified organism Status: Acute Assessment and Plan: Date of Service 05/03/19: Ms. Valentin is a 38yo F with history of depression and anxiety who presented to the ED for evaluation of shortness of breath and cough. Imaging revealed a right middle lobe pneumonia. She was initially started on azithromycin and Rocephin per antibiotic stewardship guidelines, but her symptoms were persistent without much improvement and she was switched to vancomycin and zosyn. She remained on bronchodilator therapy with Duo Nebs and IV steroids through her stay. Pulmonology was consulted and she underwent bronchoscopy 05/02/[address] King which revealed hemosiderin laden cells and black flecks visible during bronch. This was felt to be a result of smoking marijuana. Patient denied smoking cigarettes or vaping, reported she smoked marijuana for anxiety therapy. She was instructed to quit smoking marijuana due to her pulmonary status and follow up with her psychiatrist. Imaging also revealed a 5mm right lower lobe nodule and it is recommended she follow up in 6-12 mo for repeat chest CT. Initial sputum culture grew vincenzo but bronchial washing bacterial and fungal cultures from bronchoscopy were ultimately unremarkable, blood cultures negative. She will follow up with Dr King in 2 weeks. She was discharged with amoxicillin and a tapered course of prednisone. (2) Anxiety: Code(s): F41.9 - Anxiety disorder, unspecified Status: Chronic Assessment and Plan: Maintained on her Zoloft and her clonazepam. (3) Depression: Qualifiers: Depression Type: unspecified Qualified Code(s): F32.9 - Major depressive disorder, single episode, unspecified Code(s): F32.9 - Major depressive disorder, single episode, unspecified Status: Chronic Assessment and Plan: See above. Stable. . DS: Summary Time Spent with Patient Time attestation: Total time spent providing and/or coordinating discharge services: 35 mintues Exam Narrative: Exam Narrative: General: Well developed well nourished patient resting in bed in NAD HEENT: normocephalic Neck: supple Neuro: Alert and oriented x 4 CV:RRR. Resp: Clear to auscultation. Tolerating room air. Abd: Soft, non distended. No pain to palpation. Positive bowel sounds Extremities: No swelling, erythema, or pain to palpation. DS: Data Data Completed and Pending Pending studies at discharge: Pending at discharge 05/03/19 13:13 Cytology [PTH] Routine Labs on day of discharge: Preliminary micro results at discharge 05/02/19 15:24 Respiratory Culture - Preliminary Bronchial Washings Carinal 05/02/19 15:24 Acid Fast Bacilli Culture - Preliminary Bronchial Washings Carinal 05/02/19 15:24 Fungal Culture - Preliminary Sputum Imaging Radiologist's impression: Chest X-Ray 04/24/19 15:49 IMPRESSION: Middle lobe consolidation Chest X-Ray 04/27/19 12:08 IMPRESSION: Persistent middle lobe consolidation and interval right lower lobe basilar infiltrate since 04/24/2019 Chest CTA 04/28/19 18:31 IMPRESSION: 1. No evidence for pulmonary embolism. 2: Right middle lobe airspace consolidation which may represent a combination of pneumonia and/or atelectasis. 3: Small right pleural effusion. 4: 5 mm right lower lobe nodule, likely benign. Follow-up low dose CT in 12 months recommended. Chest X-Ray 05/01/19 08:55 IMPRESSION: Improvement of right middle and lower lobe infiltrate and/or atelectasis since 04/27/2019 Chest X-Ray 05/02/19 07:38 IMPRESSION: 1. Unc
--- NOTE | 2019-05-03 13:22 | WPDANESPN ---
Anes - Prog Note Post-Op Date/Time: 05/03/19 13:22 Cardiovascular status: normal Respiratory status: normal Airway patency: baseline Mental status: baseline Post-Op hydration status: normal Vital Signs: Last Vital Signs Temp 36.3 C L 05/03/19 05:22 Pulse 74 05/03/19 09:52 Resp 16 05/03/19 09:52 BP 129/84 05/03/19 05:22 Pulse Ox 100 05/03/19 08:51 I/O: Intake & Output 05/02/19 05/03/19 05/03/19 23:59 07:59 15:59 Intake Total 266 080 9408 Output Total 1900 Balance 560 -1128 1070 Laboratory Tests 05/03/19 04:51 05/03/19 04:51 05/02/19 05/02/19 05/03/19 15:25 15:25 04:51 WBC RBC Hgb Hct MCV MCH MCHC RDW Plt Count MPV Sodium Potassium Chloride Carbon Dioxide BUN Creatinine Estim Creat Clear Calc Estimated GFR Glucose Calcium Magnesium 2.4 H Total Bilirubin AST ALT Alkaline Phosphatase Total Protein Albumin Bronch Specimen Source Bronchial washings Bronchial Fluid Color White Bronchial Fluid Appearance Cloudy Bronchial Neutrophils 92 Bronchial Lymphocytes 6 Bronchial Monocytes 0 Bronchial Eosinophils 0 Bronchial Macrophages 2 Bronchial Other Cells 0 C. pneumoniae DNA (PCR) Pending 05/03/19 05/03/19 04:51 04:51 WBC 19.3 H RBC 3.86 L Hgb 12.0 Hct 37.2 MCV 96.4 MCH 31.1 MCHC 32.3 RDW 14.0 Plt Count 318 MPV 10.1 Sodium 133 L Potassium 4.3 Chloride 99 Carbon Dioxide 29 BUN 28 H Creatinine 0.80 Estim Creat Clear Calc 69 Estimated GFR > 60 Glucose 95 Calcium 8.3 L Magnesium Total Bilirubin 0.2 AST 21 ALT 40 H Alkaline Phosphatase 71 Total Protein 6.0 L Albumin 2.9 L Bronch Specimen Source Bronchial Fluid Color Bronchial Fluid Appearance Bronchial Neutrophils Bronchial Lymphocytes Bronchial Monocytes Bronchial Eosinophils Bronchial Macrophages Bronchial Other Cells C. pneumoniae DNA (PCR) Microbiology 05/02/19 15:24 Sputum Fungal Culture - Preliminary 05/02/19 15:24 Bronchial Washings Carinal Respiratory Culture - Preliminary Post-procedural complaints: none Patient Feedback: Patient satisfied with anesthetic care.
--- NOTE | 2019-05-03 16:16 | PM.PNPUL ---
Progress Note: A&P Assessment and Plan (1) Bronchospasm with bronchitis, acute: Code(s): J20.9 - Acute bronchitis, unspecified Status: Acute Assessment and Plan: Improved after bronch yesterday. Final results are pending. She is ready to be discharged, and can follow up in 3 weeks in the office. Can go home on prednisone taper, bronchodilators. She is not wheezing today, the best exam she has had so far. She has been on Duoneb every 4 hours scheduled. (2) Right middle lobe pneumonia: Qualifiers: Pneumonia type: due to unspecified organism Qualified Code(s): J18.9 - Pneumonia, unspecified organism Code(s): J18.9 - Pneumonia, unspecified organism Status: Acute Assessment and Plan: Chest x-ray no better today. (3) Anxiety: Code(s): F41.9 - Anxiety disorder, unspecified Status: Chronic Assessment and Plan: Strongly encouraged her NOT TO USE MARIJUANA as smoking anything, tobacco or marijuana or vaping, can injure lung tissue. She no longer smokes tobacco for the last 4 years. She had hemosiderin laden cells on cytology, and the black flecks were visible on exam during bronchoscopy. This is from smoking marijuana. She needs to see a psychiatrist as her anxiety is not responding to Sertraline 200 mg and Klonipin t.i.d. This is the reason she is self-medicating with marijuana. Her mother states that she herself also has severe anxiety and cannot find a doctor to prescribe opioids and benzodiazepines. The patient has a familial predisposition to anxiety, and getting this treated may help her avoid smoking marijuana. (4) Nodule of right lung: Code(s): R91.1 - Solitary pulmonary nodule Status: Acute Assessment and Plan: 5 mm nodule RLL; needs follow up in 6-[address] Subjective Date/time seen: 05/03/19 16:16 This 38 yo female is seen in follow up for pneumonia, RML infiltrate. Her mother is at the bedside. She had a bronchoscopy yesterday with large amount of thick clear secretions removed from the RML and segments of the LLL. Much better today! she has no chest heaviness, no coughing, color is good, and she is ready to go home. She is not having wheezing, is not short of breath with exertion. We talked about the sputum showing hemosiderin laden macrophages. She does not have any new complaints. She lives in the basement of her aunt's house, has electric heat. The environment is clean, not humid. Review of Systems Constitutional: Constitutional: Reports as per HPI Eyes: Eyes: Reports no additional eye complaints Cardiovascular: Cardiovascular: Reports no additional cardiovascular complaints Respiratory: Respiratory: Reports as per HPI Genitourinary: Genitourinary: Reports no additional female genitourinary complaints Musculoskeletal: Musculoskeletal: Reports no additional musculoskeletal complaints Psychiatric: Psychiatric: Reports anxiety Exam Const: General: comfortable and no acute distress HENMT: Face and sinus: normal facial exam Chest: Chest palpation & inspection: normal inspection of the chest Resp: Effort & Inspection: normal respiratory effort and symmetric chest movement Auscultation: clear to auscultation bilaterally Cardio: Rate: regular rate Rhythm: regular rhythm Heart sounds: S1 normal and S2 normal GI: Auscultation: normal bowel sounds Skin: General skin exam: no rashes or lesions noted Neuro: Cranial nerves: Yes PERRL Extrem: General: normal to inspection, normal exam except as noted and no pedal edema Psych: Affect: anxious affect Objective Data Vital Signs Vital Signs: Vital Signs - 24 hr 05/02/19 17:30 05/02/19 17:37 05/02/19 22:00 Temperature 36.6 C Pulse Rate 77 79 75 Respiratory Rate 16 16 16 Blood Pressure 133/84 Pulse Oximetry 100 05/03/19 02:28 05/03/19 02:36 05/03/19 05:22 Temperature 36.3 C L Pulse Rate 77 79 77 Respiratory Rate 16 16 18 Blood Pressure
[2019-05-03 20:50] LABS: HIV 1 RNA PCR <1.30 Log cps/mL; HIV 1 RNA PCR <20 Copies/mL
== END 2019-05-03 18:05 | disposition home or self-care (01) | DRG 139 ==
LOC: ANHED 17:08 → ANH3MED 18:02
PROVIDERS: Internal Medicine Critical Care Medicine; Physician Assistant; Admitting Provider Family Medicine; Emergency Provider General Practice; Visit Provider Physician Assistant
PROC: 0BJ08ZZ Inspection of Tracheobronchial Tree, Via Natural or Artificial Opening Endoscopic (ICD-10-PCS; CPT 31622; principal; 2019-05-02 14:30)
DX: J18.9 Pneumonia, unspecified organism (principal); F41.8 Other specified anxiety disorders; Z87.891 Personal history of nicotine dependence; K58.9 Irritable bowel syndrome, unspecified; I45.10 Unspecified right bundle-branch block; F12.90 Cannabis use, unspecified, uncomplicated; R91.1 Solitary pulmonary nodule; Z23 Encounter for immunization
CPT/HCPCS: 36415; 71046; 71275; 80048; 80053; 80202; 81001; 81003; 81025; 82565; 82607; 82728; 82746; 83540; 83550; 83605; 83690; 83735; 84466; 85014; 85018; 85025; 85027; 85380; 85999; 86140; 87015; 87040; 87070; 87081; 87102; 87106; 87116; 87186; 87205; 87206; 87449; 87486; 87536; 87899; 88104; 88108; 88305; 88312; 88313; 90471; 90686; 93005; 93306; 94640; 96361; 96374; 96375; 99285; A9270; G0008; J0131; J0456; J0696; J1100; J1650; J1885; J2248; J2405; J2543; J2550; J2704; J2920; J2930; J3370; J7030; J7120; J7512; Q9967

== ENCOUNTER 2019-07-10 18:38 | Emergency (ER) | payer OTHER, SELFPAY ==
--- NOTE | ~2019-07-10 | XR_ITS ---
EXAMINATION: XR chest 2V EXAM DATE: 07/10/2019 19:20 INDICATION: Cough. TECHNIQUE: Frontal and lateral projections of the chest obtained and reviewed. Comparison is made to prior examination from 05/02/2019. FINDINGS: The lungs are clear. There are no pleural effusions. The cardiomediastinal silhouette is within normal limits. There is no pneumothorax suspected. The bones and soft tissues are unremarkab le. IMPRESSION: No acute cardiopulmonary findings. Reviewed, dictated and finalized at location A.
[2019-07-10 18:48] VITALS: BP 123/74; PULSE 86; RESP 18; TEMP 36.3; O2SAT 100
--- NOTE | 2019-07-10 19:49 | ED.URI ---
HPI - URI/Sore Throat General Chief Complaint: Upper Respiratory Infection <Jermain Hoffman PA-C - Last Filed: 07/10/19 19:59> Stated Complaint: URI <Jermain Hoffman PA-C - Last Filed: 07/10/19 19:59> Time Seen by Provider: 07/10/19 18:44 <Jermain Hoffman PA-C - Last Filed: 07/10/19 19:59> Source: patient <SHARON Hardin Last Filed: 07/10/19 19:59> Mode of arrival: ambulatory <SHARON Hardin Last Filed: 07/10/19 19:59> Limitations: no limitations <SHARON Hardin Last Filed: 07/10/19 19:59> History of Present Illness HPI Narrative: Patient presents with chief complaint of congestion runny nose, chest congestion in the cough for the past week. Patient states that she has not had fevers, chills, vomiting, chest pain, SOB. Patient states she has been taking mucinex, and cold and flu over the counter medicine. She states she was diagnosed with pneumonia in April and her symptoms feel similar so she wanted to make sure she didn't have pneumonia again. <Jermain Hoffman PA-C - Last Filed: 07/10/19 19:59> Related Data Home Medications: Home Medications Medication Instructions Recorded Confirmed sertraline 100 mg PO DAILY 03/24/19 04/24/19 clonazepam 1 mg PO Q8H PRN 04/24/19 04/25/19 <Jermain Hoffman PA-C - Last Filed: 07/10/19 19:59> Allergies/Adverse Reactions: Allergies Allergy/AdvReac Type Severity Reaction Status Date / Time No Known Allergies Allergy Verified 07/10/19 18:50 <Jermain Hoffman PA-C - Last Filed: 07/10/19 19:59> Review of Systems Review of Systems: Narrative: CONSTITUTIONAL: Denies fever, chills, or sweats. EYES: Denies visual changes, redness, or discharge. ENT: Reports rhinorrhea, congestion, denies sore throat, or otalgia. CARDIOVASCULAR: Denies chest pain, palpitations, or edema. RESPIRATORY: Reports cough denies dyspnea. GASTROINTESTINAL: Denies abdominal pain, nausea, vomiting, or diarrhea. GENITOURINARY: Denies dysuria or hematuria. SKIN: Denies rash or itching. MUSCULOSKELETAL: Denies back pain, joint pain, or myalgia. NEUROLOGIC: Denies headache, numbness, dizziness, or weakness. PSYCHIATRIC: Denies anxiety or depression. <Jermain Hoffman PA-C - Last Filed: 07/10/19 19:59> [facility] Social History Social History: Social History Social History: She has 1 daughter. She does not have a durable power tax associate attorney. She lives on her own with her daughter. 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 She said she quit smoking and drinking when she got with her daughter. She was a social drinker and social smoker. She is a full code. Smoking status: Former smoker Alcohol intake: former Substance use: never Additional living arrangements comments: With her daughter Gender identity (if verbalized by the patient): Female Spiritual care concerns: No Agree to blood products: Yes <Jermain Hoffman PA-C - Last Filed: 07/10/19 19:59> Exam Narrative: Exam Narrative: GENERAL: Well-appearing, well-nourished, and in no acute distress. HEAD: Normocephalic, atraumatic. EYES: PERRLA and EOMI. ENT: Nares clear, no rhinorrhea or epistaxis. Mucous membranes moist. Oropharynx without tonsillar hypertrophy exudate or other lesions. Bilateral TMs pearly thompson nonbulging NECK: Supple. No adenopathy or masses. No carotid bruits or JVD CHEST: Clear to auscultation. No respiratory distress. No wheezes rales or rhonchi. Deep cough noted during exam. HEART: Regular rate and rhythm. No murmur heard. Normal peripheral pulses. EXTREMITIES: Normal range of motion. No edema. SKIN: Warm, dry, no rash. NEURO: No focal deficits. Alert and oriented x3. PSYCH: Normal mood and affect. <Jermain Hoffman PA-C - Last Filed: 07/10/19 19:59> Course Vital Signs Vital signs: Vital Signs Temperature 36.3 C L 07/10/19 18
[2019-07-10 20:34] VITALS: BP 121/74; PULSE 83; RESP 20; O2SAT 100
== END 2019-07-10 20:35 | disposition home or self-care (01) ==
PROVIDERS: Emergency Provider Emergency Medicine
DX: J40 Bronchitis, not specified as acute or chronic (principal); B34.9 Viral infection, unspecified; Z87.891 Personal history of nicotine dependence
CPT/HCPCS: 71046; 87804; 99283

== ENCOUNTER 2021-08-28 14:34 | Emergency (ER) | payer OTHER, SELFPAY ==
[2021-08-28] VITALS (16 sets, daily range): BP systolic 94–118; BP diastolic 48–78; PULSE 52–92; RESP 13–20; TEMP 36.6; O2SAT 98–100
--- NOTE | ~2021-08-28 | CT_ITS ---
EXAMINATION: CT brain wo con INDICATION: Dizziness and fatigue COMPARISON: None TECHNIQUE: Standard unenhanced head CT. The dose-length product (DLP) was 605.33 mGy-cm. The mA was a djusted according to patient size. Iterative reconstruction technique was employed. FINDINGS: There is no intracranial hemorrhage, acute infarction, or abnormal mass lesion. The ventric les are normal. There is no abnormal mass effect or midline shift. The thompson-white matter differentiat ion is normal. The basal cisterns are patent. The orbits are normal. The paranasal sinuses, mastoids and calvarium are normal. IMPRESSION: 1. No acute intracranial abnormality. Reviewed, dictated and finalized at location F.
--- NOTE | 2021-08-28 14:38 | ECG_ITS ---
Measurements Intervals [place] Rate: 78 P: 59 MS: 152 QRS: 65 QRSD: 81 T: 66 QT: 374 QTc: 426 Interpretive Statements SINUS RHYTHM COMPARED TO ECG 04/24/2019 15:14:36 THE RATE IS SLOWER Electronically Signed On 08-28-2021 20:14:26 CDT by Chantel Morales M.D.
[2021-08-28 14:59] LABS: Basophils Percent Auto 0.6 % (0.2-1.2); Eosinophils Absolute Auto 0.3 K/mm3 (0-0.3); Eosinophils Percent Auto 4.1 % (0-4.4); Hematocrit 35.7 % (37.0-47.0); Hemoglobin 11.6 g/dL (12.0-15.0); Immature Granulocyte Absolute 0.02 K/mm3 (0.00-0.031); Immature Granulocyte Percent A 0.3 % (0-0.5); Lymphocytes Absolute Auto 2.04 K/mm3 (0.9-3.2); Lymphocytes Percent Auto 28.8 % (18.3-44.2); Mean Corpuscular HGB Conc 32.5 g/dl (32-36); Mean Corpuscular Volume 98.3 fl (80-100); Mean Platelet Volume 11.3 fl (7.4-10.4); Monocytes Absolute Auto 0.5 K/mm3 (0.1-0.6); Monocytes Percent Auto 6.5 % (2.6-8.5); Neutrophils Absolute Auto 4.2 K/mm3 (1.3-6.7); Neutrophils Percent Auto 59.7 % (45.5-73.1); Platelet Count Result 176 k/mm3 (150-375); Red Blood Count 3.63 M/mm3 (4.2-5.4); Red Cell Distribution Width 13.3 % (11.5-14.5); White Blood Count 7.1 K/mm3 (4.5-10.0)
[2021-08-28 15:13] LABS: Alanine Aminotransferase 19 U/L (4-35); Albumin Level 4.2 g/dL (3.5-5.1); Alkaline Phosphatase 50 U/L (38-126); Anion Gap 5 mmol/L (8-16); Aspartate Amino Transferase 25 U/L (14-36); Bilirubin,Total 0.3 mg/dL (0.2-1.3); Blood Urea Nitrogen 13 mg/dL (7-17); Calcium 8.7 mg/dL (8.4-10.2); Carbon Dioxide 28 mmol/L (22-30); Chloride 104 mmol/L (98-107); Estimated CRCL calculation 88 ml/min; Estimated Glomerular Filt Rate > 60; Glucose 99 mg/dL (65-110); Potassium 3.8 mmol/L (3.4-5.0); Sodium 137 mmol/L (137-145)
--- NOTE | 2021-08-28 17:00 | ED.DIZZY ---
HPI - Dizziness General Chief Complaint: Dizziness Stated Complaint: dizzy, fatigue Time Seen by Provider: 08/28/21 16:50 Source: patient Mode of arrival: ambulatory Limitations: no limitations History of Present Illness HPI Narrative: Patient is a 41 y/o female who presents to the ED with c/o dizziness. Patient reports having dizziness, described as though the room is spinning and she feels off balance, for the last 2 weeks. She also reports having headaches and nausea associated with the dizziness. She has been taking ibuprofen for the headaches with some relief. Her symptoms have gotten worse over the last couple days, prompting her presentation to the ED today. Patient states she has been eating and drinking well at home. She also reports having bilateral otalgia. Denies any recent illness. Denies any vision changes, fever, chills, cough, congestion, shortness of breath, chest pain, abdominal pain, vomiting, weakness. Related Data Home Medications Medication Instructions Recorded Confirmed sertraline 100 mg PO DAILY 03/24/19 04/24/19 clonazepam 1 mg PO Q8H PRN 04/24/19 04/25/19 Allergies Allergy/AdvReac Type Severity Reaction Status Date / Time No Known Allergies Allergy Verified 07/10/19 18:50 Review of Systems Review of Systems: CONSTITUTIONAL: Denies fever, chills. EYES: Denies vision changes, redness, or discharge. ENT: Reports bilateral otalgia. Denies rhinorrhea, congestion, sore throat. CARDIOVASCULAR: Denies chest pain. RESPIRATORY: Denies cough or dyspnea. GASTROINTESTINAL: Reports nausea. Denies abdominal pain, vomiting, or diarrhea. GENITOURINARY: Denies dysuria or hematuria. NEUROLOGIC: Reports dizziness, headache. Denies numbness, tingling, weakness. All systems reviewed & are unremarkable except as noted in HPI and below PMFSH Past Medical History Medical History Anxiety Depression Irritable bowel syndrome With diarrhea Surgical History Surgical History History of salpingectomy Family History Family History Mother Diabetes mellitus Hypothyroidism Anxiety Depression Father Fibromyalgia Other Heart disease Pneumonia Social History Social History Social History: She has 1 daughter. She does not have a durable power attorney at law. She lives on her own with her daughter. 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 She said she quit smoking and drinking when she got with her daughter. She was a social drinker and social smoker. She is a full code. Smoking status: Former smoker Alcohol intake: former Substance use: never Additional living arrangements comments: With her daughter Gender identity (if verbalized by the patient): Female Spiritual care concerns: No Agree to blood products: Yes Exam Narrative: GENERAL: Well appearing, well-nourished, non-toxic, in no acute distress. HEAD: Normocephalic, atraumatic. EYES: PERRL/EOMI, conjunctivae clear bilaterally. R sided nystagmus X 1 beat, easily fatiguable. NOSE: Normal, no drainage EARS: Minimal erythema of L TM, good light reflex. No bulging. R TM clear, good light reflex, no erythema or bulging. THROAT: Pharynx clear, no exudate. MMs moist. NECK: Supple. No adenopathy, no masses. RESPIRATORY: Airway patent, respirations nonlabored. Clear to auscultation bilaterally, no rales, rhonchi, wheezing. CARDIOVASCULAR: Regular rate and rhythm without murmurs, rubs, or gallops. Radial pulses 2+ and equal bilaterally. ABDOMINAL: Soft, nontender, nondistended, no hepatosplenomegaly. Normoactive BS. MUSCULOSKELETAL: Moves all extremities. Strength/ROM intact without gross deformities. No edema. No calf tenderness. SKIN: Warm, dry, normal color. No rashes. NEURO:
--- NOTE | 2021-08-28 17:22 | PC.NURSE ---
Pt to CT scan at this time.
[2021-08-28 17:30] LABS: Add Urine Microscopic? YES; Appearance Urine Cloudy (Clear); Bacteria Urine Trace /hpf; Bilirubin Urine Negative (Negative); Blood Urine Negative (Negative); Color Urine Yellow (Yellow); Glucose Urine UA Negative (Negative); Ketones Urine Negative (Negative); Leukocyte Esterase Ur Negative LEU/UL (Negative); Mucus Urine Rare /lpf; Nitrate Urine Negative (Negative); Protein Urine Negative (Negative); RBC Urine 0-2 /hpf (0-2); Specific Grav Ur 1.008 (1.001-1.035); Squamous Epithelial Cell Urine Moderate /hpf (Few); Urobilinogen Urine Negative mg/dL (<2.0); WBC Urine 0-3 /hpf
[2021-08-28] MEDS: ONDANSETRON INJ 4 MG/2 ML VIAL IV PUSH (17:46)
[2021-08-28] MEDS: SODIUM CHLORIDE 0.9% IV 1,000 ML 999 ML IV CONT ×2 (17:47→19:29)
[2021-08-28] MEDS: KETOROLAC 30 MG/ML VIAL (*BKC) IV PUSH (19:29)
== END 2021-08-28 22:05 | disposition home or self-care (01) ==
PROVIDERS: Physician Assistant; Emergency Provider Emergency Medicine; PCP Hospitalist
DX: R42 Dizziness and giddiness (principal); R51.9 Headache, unspecified; F41.9 Anxiety disorder, unspecified; F32.A Depression, unspecified; K58.0 Irritable bowel syndrome with diarrhea; Z87.891 Personal history of nicotine dependence
CPT/HCPCS: 36415; 70450; 80053; 81001; 85025; 93005; 96361; 96365; 96375; 99284; J0131; J1885; J2405; J7030

== ENCOUNTER 2022-08-12 17:39 | Emergency (ER) | payer OTHER, SELFPAY ==
[2022-08-12 18:00] VITALS: BP 130/75; PULSE 108; RESP 12; TEMP 36.4; O2SAT 100
[2022-08-12] MEDS: TETANUS,DIPHTHERIA,AC PERTUSSIS ADULT (0.5 ML) BOOSTRIX IM (18:34)
--- NOTE | 2022-08-12 18:42 | ED.LOWEXIN ---
HPI - Extremity Injury (Lower) General Chief Complaint: Extremity Injury, Lower Stated Complaint: leg injury Time Seen by Provider: 08/12/22 18:27 Source: patient Mode of arrival: ambulatory Limitations: no limitations History of Present Illness HPI Narrative: 42-year-old with a history of depression here with complaints of puncture wound to her left leg sustained 2 days ago. She states her dog's collar got into her calf. She denies any fever or chills has mild drainage. Related Data Home Medications Medication Instructions Recorded Confirmed sertraline 100 mg tablet 100 mg PO DAILY 03/24/19 04/24/19 clonazepam 1 mg tablet 1 mg PO Q8H PRN Anxiety 04/24/19 04/25/19 Allergies Allergy/AdvReac Type Severity Reaction Status Date / Time No Known Allergies Allergy Verified 07/10/19 18:50 Review of Systems Review of Systems: All systems reviewed & are unremarkable except as noted in HPI and below Constitutional: Constitutional: Reports no additional constitutional complaints Eyes: Eyes: Reports no additional eye complaints ENT: Reports system reviewed and no additional complaints, except as documented Cardiovascular: Cardiovascular: Reports no additional cardiovascular complaints Respiratory: Respiratory: Reports no additional respiratory complaints Musculoskeletal: Musculoskeletal: Reports as per HPI Neurologic: Reports system reviewed and no additional complaints, except as documented [facility] Past Medical History Medical History (Updated 08/12/22 @ 18:44 by Carlos Hackett MD) Anxiety Depression Irritable bowel syndrome With diarrhea Surgical History Surgical History History of salpingectomy Family History Family History Mother Diabetes mellitus Hypothyroidism Anxiety Depression Father Fibromyalgia Other Heart disease Pneumonia Social History Social History Social History: She has 1 daughter. She does not have a durable power shipping clerk crating. She lives on her own with her daughter. 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 She said she quit smoking and drinking when she got with her daughter. She was a social drinker and social smoker. She is a full code. Smoking status: Former smoker Alcohol intake: former Substance use: never Living arrangements: with family Additional living arrangements comments: With her daughter Occupation/Education: occupation Gender identity (if verbalized by the patient): Female Spiritual care concerns: No Agree to blood products: Yes Exam Narrative: GENERAL: Well-appearing, well-nourished, and in no acute distress. HEAD: Normocephalic, atraumatic. EYES: PERRLA and EOMI. NECK: Supple. CHEST: Clear to auscultation. No respiratory distress. HEART: Regular rate and rhythm. No murmur heard. Normal peripheral pulses EXTREMITIES: Normal range of motion. No edema. Small puncture wound noted on the lateral aspect of the left leg with mild bruising around it. No obvious discharge noted SKIN: Warm, dry, no rash. NEURO: No focal deficits. Alert and oriented x3. PSYCH: Normal mood and affect. Course Course Emergency Course: Notified patient to take antibiotic as prescribed, ibuprofen for pain as needed. Vital Signs Vital signs: Vital Signs Temperature 36.4 C 08/12/22 18:00 Pulse Rate 108 H 08/12/22 18:00 Respiratory Rate 12 08/12/22 18:00 Blood Pressure 130/75 08/12/22 18:00 Pulse Oximetry 100 08/12/22 18:00 Temperature 36.4 C 08/12/22 18:00 Pulse Rate 108 H 08/12/22 18:00 Respiratory Rate 12 08/12/22 18:00 Blood Pressure 130/75 08/12/22 18:00 Pulse Oximetry 100 08/12/22 18:00 Discharge Plan Discharge Clinical Impression: Puncture wound of leg not thigh, left Patient Disposition: [facility]
== END 2022-08-12 19:27 | disposition home or self-care (01) ==
PROVIDERS: Emergency Provider Family Medicine; PCP Hospitalist
DX: S81.832A Puncture wound without foreign body, left lower leg, initial encounter (principal); Z23 Encounter for immunization; K58.0 Irritable bowel syndrome with diarrhea; F41.9 Anxiety disorder, unspecified; F32.A Depression, unspecified; Z90.79 Acquired absence of other genital organ(s); Z87.891 Personal history of nicotine dependence; W26.8XXA Contact with other sharp object(s), not elsewhere classified, initial encounter
CPT/HCPCS: 90471; 90715; 99283

== ENCOUNTER 2023-04-13 12:17 | Emergency (ER) | payer OTHER, SELFPAY ==
[2023-04-13 12:18] VITALS: BP 131/63; PULSE 104; RESP 16; TEMP 36.7; O2SAT 100
[2023-04-13] MEDS: SODIUM CHLORIDE 0.9% IV 1,000 ML 999 ML IV CONT (13:26)
[2023-04-13] MEDS: MORPHINE SULFATE (*CRX) 4 MG/ML INJ IV PUSH (13:27)
[2023-04-13] MEDS: ONDANSETRON INJ 4 MG/2 ML VIAL IV PUSH (13:27)
[2023-04-13 13:36] LABS: Appearance Urine Turbid (Clear); Bacteria Urine 4+ /hpf; Bilirubin Urine Negative (Negative); Blood Urine 1+ (Negative); Color Urine Dark Yellow (Yellow); Glucose Urine UA Negative (Negative); Ketones Urine 2+ mg/dL (Negative); Leukocyte Esterase Ur 2+ LEU/UL (Negative); Nitrate Urine Positive (Negative); Non Pathogenic Casts 0-2; Protein Urine 2+ mg/dL (Negative); Specific Grav Ur 1.021 (1.001-1.035); Squamous Epithelial Cell Urine Many /hpf (Few); WBC Urine 51-100 /hpf
[2023-04-13 13:37] LABS: Basophils Percent Auto 0.3 % (0.2-1.2); Eosinophils Percent Auto 0.3 % (0-4.4); Hematocrit 37.4 % (37.0-47.0); Hemoglobin 11.8 g/dL (12.0-15.0); Immature Granulocyte Absolute 0.07 K/mm3 (0.00-0.031); Immature Granulocyte Percent A 0.5 % (0-0.5); Lymphocytes Absolute Auto 1.08 K/mm3 (0.9-3.2); Lymphocytes Percent Auto 7.8 % (18.3-44.2); Mean Corpuscular HGB Conc 31.6 g/dl (32-36); Mean Corpuscular Hemoglobin 30.8 pg (26-34); Mean Corpuscular Volume 97.7 fl (80-100); Mean Platelet Volume 10.4 fl (7.4-10.4); Monocytes Percent Auto 7.2 % (2.6-8.5); Neutrophils Absolute Auto 11.6 K/mm3 (1.3-6.7); Neutrophils Percent Auto 83.9 % (45.5-73.1); Platelet Count Result 186 k/mm3 (150-375); Red Blood Count 3.83 M/mm3 (4.2-5.4); Red Cell Distribution Width 13.3 % (11.5-14.5); White Blood Count 13.8 K/mm3 (4.5-10.0)
[2023-04-13 13:39] LABS: Add Urine Microscopic? YES
--- NOTE | 2023-04-13 14:17 | ED.GENADULT ---
HPI - General Adult General Chief complaint: Urogenital-Female Stated complaint: left lower back /flank pain Time Seen by Provider: 04/13/23 12:47 History of Present Illness HPI narrative: Is a 42-year-old female who presents ER with left-sided flank pain. Ongoing for 2 days. Associated with fevers and chills and sweats. Reports body aches and fatigue. She also is peeing frequently and has discomfort with urination. No alleviating factors. No known sick contacts. Related Data Home Medications Medication Instructions Recorded Confirmed sertraline 100 mg tablet 100 mg PO DAILY 03/24/19 04/24/19 clonazepam 1 mg tablet 1 mg PO Q8H PRN Anxiety 04/24/19 04/25/19 Allergies Allergy/AdvReac Type Severity Reaction Status Date / Time No Known Allergies Allergy Verified 07/10/19 18:50 Review of Systems Review of Systems: All systems reviewed & are unremarkable except as noted in HPI and below Constitutional: Constitutional: Reports chills, Reports fatigue and Reports fever(s) ENT: Reports system reviewed and no additional complaints, except as documented Cardiovascular: Cardiovascular: Reports no additional cardiovascular complaints Respiratory: Respiratory: Reports no additional respiratory complaints Genitourinary: Genitourinary: Denies hematuria, Reports dysuria, Denies pelvic pain and Reports flank pain Musculoskeletal: Musculoskeletal: Reports no additional musculoskeletal complaints Integumentary/Breasts: Skin/Breast: Reports system reviewed and no additional complaints, except as docu [facility] Past Medical History Medical History (Updated 04/13/23 @ 14:19 by Speedy Canseco MD) Anxiety Depression Irritable bowel syndrome With diarrhea Surgical History Surgical History History of salpingectomy Family History Family History Mother Diabetes mellitus Hypothyroidism Anxiety Depression Father Fibromyalgia Other Heart disease Pneumonia Social History Social History Social History: She has 1 daughter. She does not have a durable power assistant prosecuting attorney. She lives on her own with her daughter. 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 She said she quit smoking and drinking when she got with her daughter. She was a social drinker and social smoker. She is a full code. Smoking status: Former smoker Alcohol intake: former Substance use: never Living arrangements: with family Additional living arrangements comments: With her daughter Occupation/Education: occupation Gender identity (if verbalized by the patient): Female Spiritual care concerns: No Agree to blood products: Yes Exam Narrative: GENERAL: Uncomfortable-appearing, well-nourished, and in no acute distress. HEAD: Normocephalic, atraumatic. EYES: PERRL and EOMI. ENT: Mucous membranes moist. NECK: Supple. CHEST: Clear to auscultation. No respiratory distress. HEART: Tachycardic and regular. Normal peripheral pulses. ABDOMEN: Soft, nontender, nondistended. Left CVA tenderness. EXTREMITIES: Normal range of motion. No edema. SKIN: Warm, dry, no rash. NEURO: Alert and oriented x3. PSYCH: Normal mood and affect. Course Course Emergency Course: Patient informed of results. Received IV ceftriaxone. Discharge home with pain medications/ nausea medications/antibiotics. Vital Signs Vital signs: Vital Signs Temperature 98.0 F 04/13/23 12:18 Pulse Rate 104 H 04/13/23 12:18 Respiratory Rate 16 04/13/23 12:18 Blood Pressure 131/63 04/13/23 12:18 Pulse Oximetry 100 04/13/23 12:18 Temperature 98.0 F 04/13/23 12:18 Pulse Rate 104 H 04/13/23 12:18 Respiratory Rate 16 04/13/23 12:18 Blood Pressure 131/63 04/13/23 12:18 Pulse Oximetry 100 04/13/23 12:18 Medical De
[2023-04-13 14:19] LABS: Alanine Aminotransferase 20 U/L (6-35); Albumin Level 3.9 g/dL (3.5-5.1); Alkaline Phosphatase 89 U/L (38-126); Anion Gap 5 mmol/L (8-16); Aspartate Amino Transferase 24 U/L (14-36); Bilirubin,Total 0.7 mg/dL (0.2-1.3); Blood Urea Nitrogen 11 mg/dL (7-17); Calcium 8.5 mg/dL (8.4-10.2); Carbon Dioxide 28 mmol/L (22-30); Chloride 102 mmol/L (98-107); Estimated CRCL calculation 77 ml/min; Estimated Glomerular Filt Rate > 60; Glucose 103 mg/dL (65-110); Potassium 3.6 mmol/L (3.4-5.0); Sodium 135 mmol/L (137-145)
[2023-04-13 15:51] VITALS: BP 119/72; PULSE 66; RESP 18; TEMP 36.8; O2SAT 99
== END 2023-04-13 15:53 | disposition home or self-care (01) ==
PROVIDERS: Physician Assistant; Emergency Provider Emergency Medicine; PCP Hospitalist
DX: N12 Tubulo-interstitial nephritis, not specified as acute or chronic (principal); Z87.891 Personal history of nicotine dependence
CPT/HCPCS: 36415; 80053; 81001; 81025; 85025; 87077; 87086; 87186; 96361; 96365; 96375; 99284; J0696; J2270; J2405; J7030